=== PATIENT | male | born 1945 | race Caucasian/White ===

== ENCOUNTER 2017-03-26 16:32 | Emergency (ER) | payer BC, OTHER ==
[~2017-03-26] VITALS: Ht 182.9 cm; Wt 70.0 kg
[~2017-03-26 16:32] MED LIST: ASPI325T PO; ATOR10 PO; CITA10SO PO; CITA20TA4 PO; ENAL5TAB98 PO; FLON0.053; ZYRT10TA12 PO
[2017-03-26 16:35] VITALS: BP 162/94; PULSE 60; RESP 14; TEMP 98.1; O2SAT 98
[2017-03-26] MEDS ORDERED: SODIUM CHLOR 0.9% 1000 ML INJ 1,000 ML IV ONE (16:48)
[2017-03-26] MEDS ORDERED: ROPI0.25 PO (16:52)
[2017-03-26] MEDS ORDERED: ATOR40TA16 PO (16:52)
[2017-03-26] MEDS ORDERED: ENAL10TA PO (16:52)
[2017-03-26] MEDS ORDERED: ASPI-110 PO (16:52)
[2017-03-26] MEDS ORDERED: DONE5TAB7 PO (16:52)
[2017-03-26] MEDS ORDERED: MIRTA15 PO (16:52)
[2017-03-26] MEDS ORDERED: SODIUM CHLORIDE 0.9% FLUSH 10 ML FLUSH IVF PRN (17:00)
[2017-03-26] MEDS ORDERED: MORPHINE SULFATE 4 MG/ML INJ IV ONE (17:00)
[2017-03-26] MEDS ORDERED: ONDANSETRON HCL 4 MG/2 ML VIAL IVP ONE (17:00)
--- NOTE | 2017-03-26 17:02 | PD ---
HPI Chief Complaint: Abdominal Pain Time Seen by Provider: 16:48 Travel History International Travel<30 days: No Contact w/Intl Traveler<30days: No Traveled to known affect area: No History of Present Illness HPI C/O 4/10 PAIN ON RLQ ONGOING FOR ALMOST A WEEK, ALWAYS PRESENT BUT CHANGES IN INTENSITY, STATES HE HAD ONE EPISODE OF DARK URINE, DENIES CONSTIPATION/ DIARRHEA....NON RADIATING PAIN, NO ALLEVIATING /OR WORSENING FACTORS. DESCRIBED SHARP PFSH Past Medical History Atrial Fibrillation: Yes Cardiac Catheterization: Yes (2004 post mi) Cardiovascular Problems: Yes (CABG) High Cholesterol: Yes Cerebrovascular Accident: Yes Coronary Artery Disease: Yes Diabetes: Yes (Type 2) Patient Takes Glucophage: No Diminished Hearing: No Genitourinary: Yes (prostatitis) Hypertension: Yes Inguinal Hernia: Yes (surgical repair) Immunizations Current: No Past Surgical History Appendectomy: Yes (with choley) Body Medical Devices: cardiac stents 2007 Cholecystectomy: Yes () Coronary Artery Bypass Graft: Yes (09/2008) Coronary Stent: Yes (2004) Social History Alcohol Use: No Tobacco Use: No Substance Use: No Allergies-Medications (Allergen,Severity, Reaction): Coded Allergies: No Known Allergies (Verified , 03/26/17) Reported Meds & Prescriptions Reported Meds & Active Scripts Active Reported Ropinirole 0.25 Mg Tab 0.25 Mg PO DIRECTED Atorvastatin (Atorvastatin Calcium) 40 Mg Tab 40 Mg PO HS Aspirin 81 (Aspirin) 81 Mg Tabdr 81 Mg PO DAILY Mirtazapine 15 Mg Tab 15 Mg PO HS Enalapril (Enalapril Maleate) 10 Mg Tab 10 Mg PO DAILY Donepezil 5 Mg Tab 5 Mg PO HS Review of Systems Except as stated in HPI: all other systems reviewed are Neg Gastrointestinal: Positive: Abdominal Pain Genitourinary: Positive: Decreased Urinary Output Physical Exam Narrative GENERAL: SKIN: Warm and dry. HEAD: Atraumatic. Normocephalic. EYES: Pupils equal and round. No scleral icterus. No injection or drainage. ENT: No nasal bleeding or discharge. Mucous membranes pink and moist. NECK: Trachea midline. No JVD. CARDIOVASCULAR: Regular rate and rhythm. RESPIRATORY: No accessory muscle use. Clear to auscultation. Breath sounds equal bilaterally. GASTROINTESTINAL: Abdomen soft, non-tender, nondistended. Hepatic and splenic margins not palpable. MUSCULOSKELETAL: Extremities without clubbing, cyanosis, or edema. No obvious deformities. NEUROLOGICAL: Awake and alert. No obvious cranial nerve deficits. Motor grossly within normal limits. Five out of 5 muscle strength in the arms and legs. Normal speech. PSYCHIATRIC: Appropriate mood and affect; insight and judgment normal. Data Data Last Documented VS Vital Signs Date Time Temp Pulse Resp B/P Pulse Ox O2 Delivery O2 Flow Rate FiO2 03/26/17 17:04 98.4 72 16 171/87 94 Room Air Orders Urinalysis - C+S If Indicated (03/26/17 16:41) Complete Blood Count With Diff (03/26/17 16:48) Comprehensive Metabolic Panel (03/26/17 16:48) Ct Abd/Pel W/O Iv Contrast (03/26/17 16:48) Ecg Monitoring (03/26/17 16:48) Iv Access Insert/Monitor (03/26/17 16:48) Morphine Inj (Morphine Inj) (03/26/17 17:00) Ondansetron Inj (Zofran Inj) (03/26/17 17:00) Sodium Chloride 0.9% Flush (Ns Flush) (03/26/17 17:00) Sodium Chlor 0.9% 1000 Ml Inj (Ns 1000 M (03/26/17 16:48) Lipase (03/26/17 16:48) Sodium Chlorid 0.9% 500 Ml Inj (Ns 500 M (03/26/17 18:15) Ketorolac Inj (Toradol Inj) (03/26/17 18:15) Labs Laboratory Tests Test 03/26/17 16:55 White Blood Count 6.7 TH/MM3 Red Blood Count 4.80 MIL/MM3 Hemoglobin 14.0 GM/DL Hematocrit 42.0 % Mean Corpuscular Volume 87.7 FL Mean Corpuscular Hemoglobin 29.2 PG Mean Corpuscular Hemoglobin 33.3 % Concent Red Cell Distribution Width 13.7 % Platelet Count 243 TH/MM3 Mean Platelet Volume 7.1 FL Neutrophils (%) (Auto) 75.1 % Lymphocytes (%) (Auto) 13.4 % Monocytes (%) (Auto) 9.4 % Eosinophils (%) (Auto) 1.4 % Basophils (%) (Auto) 0.7 % Neutrophils # (Auto) 5.1 TH/MM3 Lymphocytes # (Auto) 0.9 TH/MM3 Monocytes # (Auto) 0.6 TH/MM3 Eosinophils # (Auto) 0.1 TH/MM3 Basophils # (Auto) 0.0 TH/MM3 CBC Comment DIFF FINAL Differential Comment Sodium Level 144 MEQ/L Potassium Level 4.2 MEQ/L Chloride Level 108 MEQ/L Carbon Dioxide Level 28.5 MEQ/L Anion Gap 8 MEQ/L Blood Urea Nitrogen 22 MG/DL Creatinine 1.00 MG/DL Estimat Glomerular Filtration 73 ML/MIN Rate Random Glucose 105 MG/DL Calcium Level 10.1 MG/DL Total Bilirubin 1.0 MG/DL Aspartate Amino Transf 20 U/L (AST/SGOT) Alanine Aminotransferase 26 U/L (ALT/SGPT) Alkaline Phosphatase 75 U/L Total Protein 7.7 GM/DL Albumin 4.1 GM/DL Lipase 166 U/L [facility] Medical Decision Making Medical Screen Exam Complete: Yes Emergency Medical Condition: Yes Medical Record Reviewed: Yes Differential Diagnosis PYELO V URETEROLITHIASIS V DEHYDRATION V APPY V COLITIS Narrative Course PATIENT IS DOING WELL, NOT SYMPTOMATIC...CBC AND CMP WERE WNL, CT NEG FOR APPY/ COLITIS BUT POSITIVE FOR KIDNEY STONE 5MM MID URETER ON RIGHT SIDE Diagnosis Primary Impression: RIGHT URETEROLITHIASIS Patient Instructions: General Instructions, Kidney Stones (ED) Scripts Hydrocodone-Acetaminophen (Lortab)5-325 Mg Tab1 Tab PO Q4H PRN (PAIN) #20 TAB Ref 0 Prov:Sunny Hernandez MD 03/26/17 Tamsulosin (Flomax)0.4 Mg Cap0.4 Mg PO HS #7 CAP Prov:Sunny Hernandez MD 03/26/17 Disposition: 01 DISCHARGE HOME Condition: Stable Sunny Hernandez MD Mar 26, 2017 17:02
[2017-03-26 17:04] VITALS: BP 171/87; PULSE 72; RESP 16; TEMP 98.4; O2SAT 94
[2017-03-26 17:06] LABS: AUTOMATED NEUTROPHIL # 5.1 TH/MM3 (1.8-7.7); BASOPHIL % 0.7 % (0.0-2.0); EOSINOPHIL # 0.1 TH/MM3 (0-0.4); EOSINOPHIL % 1.4 % (0.0-4.0); HEMO FLAGS DIFF FINAL; LYMPH % 13.4 % (9.0-44.0); LYMPHOCYTE # 0.9 TH/MM3 (1.0-4.8); MEAN CELL VOLUME 87.7 FL (80.0-100.0); MEAN CORPUSCULAR HEMOGLOBIN 29.2 PG (27.0-34.0); MEAN CORPUSCULAR HGB CONC 33.3 % (32.0-36.0); MONO % 9.4 % (0.0-8.0); NEUT % 75.1 % (16.0-70.0); PLATELET COUNT 243 TH/MM3 (150-450); RED CELL DISTRIBUTION WIDTH 13.7 % (11.6-17.2); WHITE BLOOD COUNT 6.7 TH/MM3 (4.0-11.0)
[2017-03-26 17:14] LABS: CHLORIDE 108 MEQ/L (98-107); POTASSIUM 4.2 MEQ/L (3.5-5.1); SODIUM (NA) 144 MEQ/L (136-145)
[2017-03-26 17:18] LABS: ANION GAP 8 MEQ/L (5-15); BICARBONATE 28.5 MEQ/L (21.0-32.0); BLOOD UREA NITROGEN 22 MG/DL (7-18)
[2017-03-26 17:21] LABS: ALT (GPT) 26 U/L (12-78); AST (GOT) 20 U/L (15-37); GLOMERULAR FILTRATION RATE 73 ML/MIN (>89)
[2017-03-26 17:24] LABS: ALKALINE PHOSPHATASE 75 U/L (45-117)
--- NOTE | 2017-03-26 17:39 | RADRPT ---
EXAM DATE/TIME: 03/26/2017 17:07 [facility] COMPARISON: No previous studies available for comparison. INDICATIONS : Right flank pain. ORAL CONTRAST: No oral contrast ingested. RADIATION DOSE: 9.10 CTDIvol (mGy) MEDICAL HISTORY : Cardiovascular disease. SURGICAL HISTORY : CABG Appendectomy.Cholecystectomy. ENCOUNTER: Initial ACUITY: 1 day PAIN SCALE: 9/10 LOCATION: Right flank TECHNIQUE: Volumetric scanning of the abdomen and pelvis was performed. Using automated exposure control and ad justment of the mA and/or kV according to patient size, radiation dose was kept as low as reasonably achievable to obtain optimal diagnostic quality images. DICOM format image data is available electro nically for review and comparison. FINDINGS: There is acute obstructive uropathy of the right mid ureter secondary to a 5 mm calcified calculus at the level of the L4-L5 disc space resulting in moderate uretero pelvocaliectasis on the right. The prostate gland is prominent in size. Uncomplicated colonic diverticulosis is noted. There is no acu te diverticulitis. The patient is status post cholecystectomy. Degenerative changes are noted throu ghout the lumbar spine. A small left inguinal hernia containing only fat is noted. Fibrotic scarrin g is noted within the posterior lung bases. CONCLUSION: 1. Acute obstructive uropathy of the right mid ureter at the L4-L5 level secondary to a 5 mm calculu s resulting in moderate uretero pelvocaliectasis. 2. Uncomplicated colonic diverticulosis. 3. Enlarged prostate. 4. Small left inguinal hernia containing only fat. 5. Degenerative changes involving the lumbar spine. Hi Del Valle MD on March 26, 2017 at 17:27 Board Certified Radiologist. This report was verified electronically.
[2017-03-26] MEDS ORDERED: KETOROLAC TROMETHAMINE 30 MG/ML (IVP) VIAL IV PUSH ONE (18:15)
[2017-03-26] MEDS ORDERED: SODIUM CHLORID 0.9% 500 ML INJ 500 ML IV ONE (18:15)
[2017-03-26] MEDS ORDERED: TAMS5CAP PO (18:22)
[2017-03-26] MEDS ORDERED: HYDR-3533 PO (18:22)
[2017-03-26 18:23] LABS: BLOOD, URINE LARGE (NEG); GLUCOSE,URINE NEG (NEG); KETONE, URINE TRACE mg/dL (NEG); NITRITE,URINE NEG (NEG); PH, URINE 5.5 (5.0-8.5)
[2017-03-26 18:26] LABS: METHOD OF COLLECTION CLEAN CATCH; URINE COLOR BROWN (YELLW/STRAW)
[2017-03-26 18:27] LABS: COMMENT (UR) CULT NOT INDICATED; CULTURE IF INDICATED CULT NOT INDICATED; RBC, URINE INNUM /hpf (0-3)
[2017-03-26 19:29] VITALS: BP 168/78; PULSE 72; RESP 18; O2SAT 96
== END 2017-03-26 19:32 | disposition home or self-care (01) ==
LOC: PHED 16:32
DX: N20.1 Calculus of ureter (principal); I25.2 Old myocardial infarction; E11.9 Type 2 diabetes mellitus without complications; I25.10 Atherosclerotic heart disease of native coronary artery without angina pectoris; I10 Essential (primary) hypertension; Z86.73 Personal history of transient ischemic attack (TIA), and cerebral infarction without residual deficits; Z95.1 Presence of aortocoronary bypass graft; I48.91 Unspecified atrial fibrillation; E78.00 Pure hypercholesterolemia, unspecified
CPT/HCPCS: 74176; 80053; 81001; 83690; 85025; 96361; 96374; 96375; 99285; J1885; J2270; J2405; J7030; J7040

== ENCOUNTER 2017-07-18 16:56 | Inpatient (IN) | payer OTHER, MEDICARE ==
[~2017-07-18] VITALS: Ht 177.8 cm; Wt 68.9 kg
[2017-07-18] VITALS (10 sets, daily range): BP systolic 74–107; BP diastolic 42–61; PULSE 56–73; RESP 16–18; TEMP 97.4–97.5; O2SAT 90–98
[~2017-07-18 16:56] MED LIST changes: +ASPI-110 PO; -ASPI325T PO; -ATOR10 PO; +ATOR40TA16 PO; -CITA10SO PO; -CITA20TA4 PO; +DONE5TAB7 PO; +ENAL10TA PO; -ENAL5TAB98 PO; -FLON0.053; +HYDR-3533 PO; +MIRTA15 PO; +ROPI0.25 PO; +TAMS5CAP PO; -ZYRT10TA12 PO
[2017-07-18] MEDS ORDERED: SODIUM CHLOR 0.9% 1000 ML INJ 1,000 ML IV SCH (17:19)
[2017-07-18] MEDS ORDERED: SODIUM CHLORIDE 0.9% FLUSH 10 ML FLUSH IV FLUSH PRN ×2 (17:30→22:15)
[2017-07-18] MEDS ORDERED: DONE5TAB7 PO (17:36)
[2017-07-18] MEDS ORDERED: SINE10100 PO (17:36)
[2017-07-18 17:40] LABS: BASOPHIL # 0.1 TH/MM3 (0-0.2); BASOPHIL % 0.4 % (0.0-2.0); EOSINOPHIL % 0.1 % (0.0-4.0); HEMATOCRIT 37.4 % (39.0-51.0); LYMPH % 3.2 % (9.0-44.0); LYMPHOCYTE # 0.6 TH/MM3 (1.0-4.8); MEAN CELL VOLUME 85.9 FL (80.0-100.0); MEAN CORPUSCULAR HEMOGLOBIN 29.2 PG (27.0-34.0); MONO % 7.3 % (0.0-8.0); PLATELET COUNT 222 TH/MM3 (150-450); RED BLOOD COUNT 4.36 MIL/MM3 (4.50-5.90); RED CELL DISTRIBUTION WIDTH 13.3 % (11.6-17.2); WHITE BLOOD COUNT 19.1 TH/MM3 (4.0-11.0)
--- NOTE | 2017-07-18 17:45 | PD ---
HPI Chief Complaint: Altered Mental Status Time Seen by Provider: 17:19 Travel History International Travel<30 days: No Contact w/Intl Traveler<30days: No Traveled to known affect area: No History of Present Illness HPI Patient is a 71-year-old male who presents to emergency room with his for evaluation of altered mental status. Patient is , he has not been feeling well since yesterday. Reports that he has history of dementia and Parkinson's disease, more confused since yesterday. Reports that he has had decreased by mouth intake, reports that he had an episode of nausea and vomiting today. Reports that she noticed blood in his urine - patient was complaining of left- sided flank pain. Reports history of kidney stones in the past. Patient at this time denies any chest pain or shortness of breath, patient is alert to person and place, not time. Patient unable to provide history of present illness this time. PFSH Past Medical History Atrial Fibrillation: Yes Cardiac Catheterization: Yes (2004 post mi) Cardiovascular Problems: Yes (CABG) High Cholesterol: Yes Cerebrovascular Accident: Yes Coronary Artery Disease: Yes Diabetes: Yes (Type 2) Patient Takes Glucophage: No Diminished Hearing: No Genitourinary: Yes (prostatitis) Hypertension: Yes Inguinal Hernia: Yes (surgical repair) Kidney Stones: Yes Parkinson's Disease: Yes Immunizations Current: No Influenza Vaccination: Yes ?: Not Past Surgical History Appendectomy: Yes (with choley) Body Medical Devices: cardiac stents 2007 Cholecystectomy: Yes () Coronary Artery Bypass Graft: Yes (09/2008) Coronary Stent: Yes (2004) Genitourinary Surgery: Yes (KIDNEY STONE REMOVAL) Social History Alcohol Use: No Tobacco Use: No Substance Use: No Allergies-Medications (Allergen,Severity, Reaction): Coded Allergies: propofol (Verified Allergy, Severe, Hallucinations, 07/18/17) Reported Meds & Prescriptions Reported Meds & Active Scripts Active Flomax (Tamsulosin HCl) 0.4 Mg Cap 0.4 Mg PO HS Reported Sinemet (Carbidopa/Levodopa) 10-100 Mg Tab 1 Tab PO Q8HR Donepezil 5 Mg Tab 5 Mg PO DAILY Ropinirole 0.25 Mg Tab 0.25 Mg PO DIRECTED Atorvastatin (Atorvastatin Calcium) 40 Mg Tab 40 Mg PO HS Aspirin 81 (Aspirin) 81 Mg Tabdr 81 Mg PO DAILY Mirtazapine 15 Mg Tab 15 Mg PO HS Enalapril (Enalapril Maleate) 10 Mg Tab 10 Mg PO DAILY Review of Systems ROS Limitations: Altered Mental Status General / Constitutional: No: Fever Eyes: No: Visual changes HENT: No: Headaches Cardiovascular: No: Chest Pain or Discomfort Respiratory: No: Shortness of Breath Gastrointestinal: Positive: Nausea, Vomiting, No: Abdominal Pain Genitourinary: Positive: Hematuria, Flank Pain, No: Dysuria Musculoskeletal: No: Pain Skin: No Rash Neurologic: No: Weakness Psychiatric: No: Depression Endocrine: No: Polydipsia Hematologic/Lymphatic: No: Easy Bruising Physical Exam Narrative GENERAL: moderate distress SKIN: Focused skin assessment warm/dry. HEAD: Atraumatic. Normocephalic. EYES: Pupils equal and round. No scleral icterus. No injection or drainage. ENT: No nasal bleeding or discharge. Mucous membranes pink and tachy. NECK: Trachea midline. No JVD. CARDIOVASCULAR: Regular rate and rhythm. No murmur appreciated. RESPIRATORY: No accessory muscle use. Clear to auscultation. Breath sounds equal bilaterally. GASTROINTESTINAL: Abdomen soft, non-tender, nondistended. Hepatic and splenic margins not palpable. MUSCULOSKELETAL: No obvious deformities. No clubbing. No cyanosis. No edema. NEUROLOGICAL: Awake and alert to person and place. No obvious cranial nerve deficits. Motor grossly within normal limits. Normal speech. Data Data Last Documented VS Vital Signs Date Time Temp Pulse Resp B/P (MAP) Pulse Ox O2 Delivery O2 Flow Rate FiO2 07/18/17 18:21 66 18 89/51 (64) 97 Room Air 07/18/17 17:04 97.4 Orders Orders Complete Blood Count With Diff (07/18/17 17:19) Comprehensive Metabolic Panel (07/18/17 17:19) Lipase (07/18/17 17:19) Lactic Acid (07/18/17 17:19) Prothrombin Time / Inr (Pt) (07/18/17 17:19) Act Partial Throm Time (Ptt) (07/18/17 17:19) Urinalysis - C+S If Indicated (07/18/17 17:19) Ct Abd/Pel W/O Iv Contrast (07/18/17 17:19) Iv Access Insert/Monitor (07/18/17 17:19) Ecg Monitoring (07/18/17 17:19) Oximetry (07/18/17 17:19) Sodium Chlor 0.9% 1000 Ml Inj (Ns 1000 M (07/18/17 17:19) Sodium Chloride 0.9% Flush (Ns Flush) (07/18/17 17:30) Electrocardiogram (07/18/17 17:19) Chest, Single Ap (07/18/17 17:19) Cath For Specimen (07/18/17 17:19) Lactic Acid Sepsis Protocol (07/18/17 17:19) Type And Screen (07/18/17 17:19) Ct Brain W/O Iv Contrast(Rout) (07/18/17 17:41) Blood Culture (07/18/17 17:51) Piperacil-Tazo 3.375 Gm Premix (Zosyn 3. (07/18/17 18:15) Vancomycin Inj (Vancomycin Inj) (07/18/17 18:30) Ckmb (Isoenzyme) Profile (07/18/17 18:31) Troponin I (07/18/17 18:31) Sodium Chlor 0.9% 1000 Ml Inj (Ns 1000 M (07/18/17 18:45) Labs Laboratory Tests Test 07/18/17 17:30 White Blood Count 19.1 TH/MM3 Red Blood Count 4.36 MIL/MM3 Hemoglobin 12.7 GM/DL Hematocrit 37.4 % Mean Corpuscular Volume 85.9 FL Mean Corpuscular Hemoglobin 29.2 PG Mean Corpuscular Hemoglobin Concent 34.0 % Red Cell Distribution Width 13.3 % Platelet Count 222 TH/MM3 Mean Platelet Volume 6.9 FL Neutrophils (%) (Auto) 89.0 % Lymphocytes (%) (Auto) 3.2 % Monocytes (%) (Auto) 7.3 % Eosinophils (%) (Auto) 0.1 % Basophils (%) (Auto) 0.4 % Neutrophils # (Auto) 17.0 TH/MM3 Lymphocytes # (Auto) 0.6 TH/MM3 Monocytes # (Auto) 1.4 TH/MM3 Eosinophils # (Auto) 0.0 TH/MM3 Basophils # (Auto) 0.1 TH/MM3 CBC Comment AUTO DIFF Prothrombin Time 11.8 SEC Prothromb Time International Ratio 1.1 RATIO Activated Partial Thromboplast Time 33.3 SEC Blood Urea Nitrogen 22 MG/DL Creatinine 1.00 MG/DL Random Glucose 153 MG/DL Total Protein 6.9 GM/DL Albumin 3.2 GM/DL Calcium Level 9.6 MG/DL Alkaline Phosphatase 306 U/L Aspartate Amino Transf (AST/SGOT) 15 U/L Alanine Aminotransferase (ALT/SGPT) 8 U/L Total Bilirubin 1.4 MG/DL Sodium Level 134 MEQ/L Potassium Level 4.0 MEQ/L Chloride Level 102 MEQ/L Carbon Dioxide Level 22.4 MEQ/L Anion Gap 10 MEQ/L Estimat Glomerular Filtration Rate 73 ML/MIN Lactic Acid Level 1.0 mmol/L Lipase 88 U/L [facility] Medical Decision Making Medical Screen Exam Complete: Yes Emergency Medical Condition: Yes Medical Record Reviewed: Yes Interpretation(s) ekg at 1713: NSR at 74bpm, qt/qtc: 400/428m rbbb Vital Signs Date Time Temp Pulse Resp B/P (MAP) Pulse Ox O2 Delivery O2 Flow Rate FiO2 07/18/17 17:25 73 18 85/57 (66) 98 Room Air 07/18/17 17:22 73 07/18/17 17:04 97.4 72 18 74/48 (57) 96 Differential Diagnosis Differential includes sepsis, UTI, pyelonephritis, kidney stone, CVA, ACS, arrhythmia, electrolyte abnormality Narrative Course Patient is a 71-year-old male who presents to emergency room with his for evaluation of altered mental status. Patient has had 2 days of flank pain with hematuria and dysuria, patient with history of kidney stones in the past. As per patient's , altered and not acting like his normal self, reports decreased overall oral intake over the past 2 days. Patient was placed on a desk monitor upon arrival to the emergency room. An IV line established, patient was found to be hypotensive with a blood pressure 74/48, IV fluid bolus ordered for patient. Lab work including UA, CT of the head as well as abdomen and pelvis ordered, lactic acid as well as blood cultures ordered as well. Vital Signs Date Time Temp Pulse Resp B/P (MAP) Pulse Ox O2 Delivery O2 Flow Rate FiO2 07/18/17 18:21 66 18 89/51 (64) 97 Room Air 07/18/17 17:25 73 18 85/57 (66) 98 Room Air 07/18/17 17:22 73 07/18/17 17:04 97.4 72 18 74/48 (57) 96 Laboratory Tests Test 07/18/17 17:30 White Blood Count 19.1 TH/MM3 (4.0-11.0) Red Blood Count 4.36 MIL/MM3 (4.50-5.90) Hemoglobin 12.7 GM/DL (13.0-17.0) Hematocrit 37.4 % (39.0-51.0) Mean Corpuscular Volume 85.9 FL (80.0-100.0) Mean Corpuscular Hemoglobin 29.2 PG (27.0-34.0) Mean Corpuscular Hemoglobin Concent 34.0 % (32.0-36.0) Red Cell Distribution Width 13.3 % (11.6-17.2) Platelet Count 222 TH/MM3 (150-450) Mean Platelet Volume 6.9 FL (7.0-11.0) Neutrophils (%) (Auto) 89.0 % (16.0-70.0) Lymphocytes (%) (Auto) 3.2 % (9.0-44.0) Monocytes (%) (Auto) 7.3 % (0.0-8.0) Eosinophils (%) (Auto) 0.1 % (0.0-4.0) Basophils (%) (Auto) 0.4 % (0.0-2.0) Neutrophils # (Auto) 17.0 TH/MM3 (1.8-7.7) Lymphocytes # (Auto) 0.6 TH/MM3 (1.0-4.8) Monocytes # (Auto) 1.4 TH/MM3 (0-0.9) Eosinophils # (Auto) 0.0 TH/MM3 (0-0.4) Basophils # (Auto) 0.1 TH/MM3 (0-0.2) CBC Comment AUTO DIFF Prothrombin Time 11.8 SEC (9.8-11.6) Prothromb Time International Ratio 1.1 RATIO Activated Partial Thromboplast Time 33.3 SEC (24.3-30.1) Blood Urea Nitrogen 22 MG/DL (7-18) Creatinine 1.00 MG/DL (0.60-1.30) Random Glucose 153 MG/DL (74-106) Total Protein 6.9 GM/DL (6.4-8.2) Albumin 3.2 GM/DL (3.4-5.0) Calcium Level 9.6 MG/DL (8.5-10.1) Alkaline Phosphatase 306 U/L (45-117) Aspartate Amino Transf (AST/SGOT) 15 U/L (15-37) Alanine Aminotransferase (ALT/SGPT) 8 U/L (12-78) Total Bilirubin 1.4 MG/DL (0.2-1.0) Sodium Level 134 MEQ/L (136-145) Potassium Level 4.0 MEQ/L (3.5-5.1) Chloride Level 102 MEQ/L (98-107) Carbon Dioxide Level 22.4 MEQ/L (21.0-32.0) Anion Gap 10 MEQ/L (5-15) Estimat Glomerular Filtration Rate 73 ML/MIN (>89) Lactic Acid Level 1.0 mmol/L (0.4-2.0) Lipase 88 U/L (73-393) Last Impressions Head CT 07/18/17 174 Signed Impressions: Service Date/Time: Tuesday, July 18, 2017 17:54 - CONCLUSION: Normal examination. Walt Leonard MD Chest X-Ray [id number] Signed Impressions: Service Date/Time: Tuesday, July 18, 2017 17:48 - CONCLUSION: No acute cardiopulmonary abnormality is identified. Ovidio Barba MD Abdomen/Pelvis CT [id number] Signed Impressions: Service Date/Time: Tuesday, July 18, 2017 18:00 - CONCLUSION: 3.5 cm low density lesion lower pole of the right kidney felt to represent a cyst versus solid mass . No evidence of renal or ureteral calculi or obstructive uropathy. Walt Leonard MD Patient returns to ER, continues to by hypotensive, patient has not received IVF yet as he was at CT. Patient with wbc of 19.1, lactic acid of 1.0, he has been pancultured. vanco and zosyn ordered. Patient will be admitted to the ICU once labs have resulted Patient signed out to care of Dr. Valenzuela at change of shift Critical Care Narrative Aggregate critical care time was 30 minutes. Time to perform other separately billable procedures was not included in the critical care time. My time did not include minutes spent treating any other patients simultaneously or on activities that did not directly contribute to the patient's treatment. The services I provided to this patient were to treat and/or prevent clinically significant deterioration that could result in: , decompensation, deterioration I provided critical care services requiring my management, as noted below: Chart data review, documentation time, medication orders and management, vital sign assessments/reviewing monitor data, ordering and reviewing lab tests, ordering and interpreting/reviewing x-rays and diagnostic studies, care of the patient and discussion of the patient with the admitting physicians. Diagnosis Primary Impression: Sepsis Qualified Codes: A41.9 - Sepsis, unspecified organism Admitting Information Admitting Physician Requests: Admit Radha Blevins DO Jul 18, 2017 17:45
[2017-07-18 17:48] LABS: HEMO FLAGS AUTO DIFF
[2017-07-18 17:50] LABS: CHLORIDE 102 MEQ/L (98-107); SODIUM (NA) 134 MEQ/L (136-145)
[2017-07-18 17:54] LABS: ANION GAP 10 MEQ/L (5-15); BICARBONATE 22.4 MEQ/L (21.0-32.0); BLOOD UREA NITROGEN 22 MG/DL (7-18)
[2017-07-18 17:55] LABS: APTT (PATIENT) 33.3 SEC (24.3-30.1); INTERNATIONAL NORMALIZED RATIO 1.1 RATIO; PROTHROMBIN TIME - PATIENT 11.8 SEC (9.8-11.6)
[2017-07-18 17:57] LABS: ALT (GPT) 8 U/L (12-78); AST (GOT) 15 U/L (15-37); GLOMERULAR FILTRATION RATE 73 ML/MIN (>89)
--- NOTE | 2017-07-18 17:57 | RADRPT ---
EXAM DATE/TIME: 07/18/2017 17:48 [facility] COMPARISON: No previous studies available for comparison. INDICATIONS : Short of breath. MEDICAL HISTORY : Cardiovascular disease. SURGICAL HISTORY : CABG. ENCOUNTER: Initial ACUITY: 1 day PAIN SCORE: 0/10 LOCATION: Bilateral chest FINDINGS: Portable AP view of the chest demonstrates a normal-sized cardiac silhouette. No effusion, consolidat ion, or pneumothorax is visualized. The bones and soft tissues demonstrate no acute abnormality. Kirsten ent is post median sternotomy and valve replacement. CONCLUSION: No acute cardiopulmonary abnormality is identified. Ovidio Barba MD on July 18, 2017 at 17:55 Board Certified Radiologist. This report was verified electronically.
[2017-07-18 17:58] LABS: TOTAL BILIRUBIN ADULT 1.4 MG/DL (0.2-1.0)
[2017-07-18 18:00] LABS: ALKALINE PHOSPHATASE 306 U/L (45-117)
--- NOTE | 2017-07-18 18:12 | RADRPT ---
EXAM DATE/TIME: 07/18/2017 17:54 [facility] COMPARISON: No previous studies available for comparison. INDICATIONS : Headache. RADIATION DOSE: 58.14 CTDIvol (mGy) MEDICAL HISTORY : Cerebrovascular disease. Cardiovascular disease Hypertension.Diabetes. SURGICAL HISTORY : CABG Coronary artery stent.Appendectomy.Cholecystectomy. ENCOUNTER: Initial ACUITY: 2 days PAIN SCALE: 5/10 LOCATION: cranial TECHNIQUE: Multiple contiguous axial images were obtained of the head. Using automated exposure control and adj ustment of the mA and/or kV according to patient size, radiation dose was kept as low as reasonably a chievable to obtain optimal diagnostic quality images. DICOM format image data is available electro nically for review and comparison. FINDINGS: CEREBRUM: The ventricles are normal for age. No evidence of midline shift, mass lesion, hemorrhage or acute in farction. No extra-axial fluid collections are seen. POSTERIOR FOSSA: The cerebellum and brainstem are intact. The 4th ventricle is midline. The cerebellopontine angle i s unremarkable. EXTRACRANIAL: The visualized portion of the orbits is intact. SKULL: The calvaria is intact. No evidence of skull fracture. CONCLUSION: Normal examination. Walt Leonard MD on July 18, 2017 at 18:10 Board Certified Radiologist. This report was verified electronically.
[2017-07-18] MEDS ORDERED: PIPERACIL-TAZO 3.375 GM PREMIX 50 ML IV ONE (18:15)
[2017-07-18] MEDS ORDERED: VANCOMYCIN INJ 1,000 MG in SODIUM CHLOR 0.9% 250 ML INJ 250 ML IV ONE ×2 (18:15→18:30)
--- NOTE | 2017-07-18 18:19 | RADRPT ---
EXAM DATE/TIME: 07/18/2017 18:00 [facility] COMPARISON: No previous studies available for comparison. INDICATIONS : Increased urinary frequency with blood. Left flank pain. ORAL CONTRAST: No oral contrast ingested. RADIATION DOSE: 5.16 CTDIvol (mGy) MEDICAL HISTORY : Cerebrovascular disease. Cardiovascular disease Hypertension.Diabetes. SURGICAL HISTORY : CABG Coronary artery stent.Appendectomy.Cholecystectomy. ENCOUNTER: Initial ACUITY: 2 days PAIN SCALE: 5/10 LOCATION: Left flank TECHNIQUE: Volumetric scanning of the abdomen and pelvis was performed. Using automated exposure control and adjustment of the mA and/or kV according to patient size, radiation dose was kept as low as reasonably achievable to obtain optimal diagnostic quality images. DICOM format image data is av ailable electronically for review and comparison. FINDINGS: LOWER LUNGS: The visualized lower lungs are clear. LIVER: Homogeneous density without lesion. There is no dilation of the biliary tree is in place prior cholecystectomy SPLEEN: Normal size without lesion. PANCREAS: Within normal limits. KIDNEYS: Normal in size and shape. There is no stone, or hydronephrosis. There is a 3.5 cm hypod ensity of the inferior pole of the right kidney which could conceivably represent a cyst. ADRENAL GLANDS: Within normal limits. VASCULAR: There is no aortic aneurysm. BOWEL/MESENTERY: The stomach, small bowel, and colon demonstrate no acute abnormality. There is no free intraperitoneal air or fluid. ABDOMINAL WALL: Within normal limits. RETROPERITONEUM: There is no lymphadenopathy. BLADDER: No wall thickening or mass. REPRODUCTIVE: Within normal limits. INGUINAL: There is no lymphadenopathy or hernia. MUSCULOSKELETAL: Within normal limits for patient age. CONCLUSION: 3.5 cm low density lesion lower pole of the right kidney felt to represent a cyst paramjit mer solid mass . No evidence of renal or ureteral calculi or obstructive uropathy. Walt Leonard MD on July 18, 2017 at 18:14 Board Certified Radiologist. This report was verified electronically.
[2017-07-18] MEDS ORDERED: SODIUM CHLOR 0.9% 1000 ML INJ 1,000 ML IV ONE ×2 (18:45→22:08)
[2017-07-18 18:56] LABS: SCAN/DIFF AUTO DIFF CONFIRMED
[2017-07-18 19:05] LABS: CREATINE KINASE 52 U/L (39-308)
[2017-07-18 19:07] LABS: BLOOD, URINE LARGE (NEG); GLUCOSE,URINE NEG (NEG); KETONE, URINE TRACE mg/dL (NEG); NITRITE,URINE POS (NEG)
[2017-07-18 19:19] LABS: URINE COLOR YELLOW (YELLW/STRAW)
[2017-07-18 19:20] LABS: BACTERIA, URINE MANY /hpf; COMMENT (UR) CULTURE INDICATED; CULTURE IF INDICATED CULTURE INDICATED; SQUAMOUS EPITHELIAL CELL URINE 0-5 /hpf (0-5)
--- NOTE | 2017-07-18 19:37 | PD ---
Physical Exam Time Seen by Provider: 19:[address] Blevins left this patient with me to check the urine results and call the pencils washer. Data Data Last Documented VS Vital Signs Date Time Temp Pulse Resp B/P (MAP) Pulse Ox O2 Delivery O2 Flow Rate FiO2 07/18/17 19:00 64 16 98 Room Air 07/18/17 18:21 89/51 (64) 07/18/17 17:04 97.4 Orders Orders Complete Blood Count With Diff (07/18/17 17:19) Comprehensive Metabolic Panel (07/18/17 17:19) Lipase (07/18/17 17:19) Lactic Acid (07/18/17 17:19) Prothrombin Time / Inr (Pt) (07/18/17:19) Act Partial Throm Time (Ptt) (07/18/17:19) Urinalysis - C+S If Indicated (07/18/17 17:19) Ct Abd/Pel W/O Iv Contrast (07/18/17 17:19) Iv Access Insert/Monitor (07/18/17 17:19) Ecg Monitoring (07/18/17 17:19) Oximetry (07/18/17 17:19) Sodium Chlor 0.9% 1000 Ml Inj (Ns 1000 M (07/18/17 17:19) Sodium Chloride 0.9% Flush (Ns Flush) (07/18/17 17:30) Electrocardiogram (07/18/17 17:19) Chest, Single Ap (07/18/17 17:19) Cath For Specimen (07/18/17 17:19) Lactic Acid Sepsis Protocol (07/18/17 17:19) Type And Screen (07/18/17 17:19) Ct Brain W/O Iv Contrast(Rout) (07/18/17 17:41) Blood Culture (07/18/17 17:51) Piperacil-Tazo 3.375 Gm Premix (Zosyn 3. (07/18/17 18:15) Vancomycin Inj (Vancomycin Inj) (07/18/17 18:30) Sodium Chlor 0.9% 1000 Ml Inj (Ns 1000 M (07/18/17 18:45) Ckmb (Isoenzyme) Profile (07/18/17 17:30) Troponin I (07/18/17 17:30) Urine Culture (07/18/17 19:00) Labs Laboratory Tests Test 07/18/17 17:30 07/18/17 19:00 07/18/17 19:28 White Blood Count 19.1 TH/MM3 Red Blood Count 4.36 MIL/MM3 Hemoglobin 12.7 GM/DL Hematocrit 37.4 % Mean Corpuscular Volume 85.9 FL Mean Corpuscular Hemoglobin 29.2 PG Mean Corpuscular Hemoglobin Concent 34.0 % Red Cell Distribution Width 13.3 % Platelet Count 222 TH/MM3 Mean Platelet Volume 6.9 FL Neutrophils (%) (Auto) 89.0 % Lymphocytes (%) (Auto) 3.2 % Monocytes (%) (Auto) 7.3 % Eosinophils (%) (Auto) 0.1 % Basophils (%) (Auto) 0.4 % Neutrophils # (Auto) 17.0 TH/MM3 Lymphocytes # (Auto) 0.6 TH/MM3 Monocytes # (Auto) 1.4 TH/MM3 Eosinophils # (Auto) 0.0 TH/MM3 Basophils # (Auto) 0.1 TH/MM3 CBC Comment AUTO DIFF Differential Comment AUTO DIFF CONFIRMED Prothrombin Time 11.8 SEC Prothromb Time International Ratio 1.1 RATIO Activated Partial Thromboplast Time 33.3 SEC Blood Urea Nitrogen 22 MG/DL Creatinine 1.00 MG/DL Random Glucose 153 MG/DL Total Protein 6.9 GM/DL Albumin 3.2 GM/DL Calcium Level 9.6 MG/DL Alkaline Phosphatase 306 U/L Aspartate Amino Transf (AST/SGOT) 15 U/L Alanine Aminotransferase (ALT/SGPT) 8 U/L Total Bilirubin 1.4 MG/DL Sodium Level 134 MEQ/L Potassium Level 4.0 MEQ/L Chloride Level 102 MEQ/L Carbon Dioxide Level 22.4 MEQ/L Anion Gap 10 MEQ/L Estimat Glomerular Filtration Rate 73 ML/MIN Lactic Acid Level 1.0 mmol/L 1.1 mmol/L Total Creatine Kinase 52 U/L Troponin I 0.02 NG/ML Lipase 88 U/L Urine Color YELLOW Urine Turbidity CLOUDY Urine pH 6.0 Urine Specific [place] 1.015 Urine Protein 100 mg/dL Urine Glucose (UA) NEG mg/dL Urine Ketones TRACE mg/dL Urine Occult Blood LARGE Urine Nitrite POS Urine Bilirubin NEG Urine Leukocyte Esterase MOD Urine RBC 25-49 /hpf Urine WBC 25-49 /hpf Urine WBC Clumps FEW Urine Squamous Epithelial Cells 0-5 /hpf Urine Amorphous Sediment FEW Urine Bacteria MANY /hpf Microscopic Urinalysis Comment CULTURE INDICATED MDM Medical Record Reviewed: Yes Supervised Visit with MICHAEL: Yes Interpretation(s) The CBC shows a white count of 19,100 with 89% neutrophils. He has a minimal anemia with a hemoglobin of 12.7 and hematocrit of 37.4. The urine shows cloudy turbidity with trace ketones, large blood, positive nitrite and moderate leukocyte esterase with 25-49 white cells and white cell clumping's present and many bacteria and culture is indicated. The complete metabolic profile shows a sodium 134, BUN 22, glucose 153 with GFR of 73 and total bilirubin 1.4 and alkaline phosphatase of 306 with albumin 3.2 but is otherwise unremarkable. The troponin I is normal. The lipase is normal. The lactic acid is normal at 1.0. The coagulation profile shows a ProTime of 11.8 and a PTT of 33.3 and INR 1.1. Differential Diagnosis Sepsis, urinary tract infection, electrolyte disorder, dehydration, hypotension Narrative Course The patient appears to have sepsis. The source of the infection appears to be the urine. His hypotension is improving with fluids, he was apparently very dehydrated. He had a catheterization for urine and no urine was obtained because the bladder was empty. Currently, he has 107 systolic blood pressure after 1 L of fluid. I discussed the patient with Dr. Alvarez, the patient will be admitted here to the intensive care unit. Sepsis Criteria SIRS Criteria (2 or more): WBC > 33390, < 4000 or > 10% bands Severe Sepsis (+one): Hypotension Physician Communication Physician Communication I discussed the patient with Dr. Alvarez. Diagnosis Primary Impression: Sepsis Qualified Codes: A41.9 - Sepsis, unspecified organism Additional Impression: Moderate dehydration Admitting Information Admitting Physician Requests: Admit Garfield Valenzuela MD Jul 18, 2017 19:37
[2017-07-18] MEDS: SODIUM CHLOR 0.9% 1000 ML INJ 1,000 ML IV ONE (22:08)
[2017-07-18] MEDS ORDERED: Vancomycin Consult Pharmacy 1 EA OTHER SCH (22:15)
[2017-07-18] MEDS ORDERED: CHLORHEXIDINE GLUCONATE 2 % 1 PACK (2 CLOTHS) TOP PRN (22:15)
[2017-07-18] MEDS ORDERED: MISCELLANEOUS NURSING INFORMATION XX SCH (22:15)
[2017-07-18] MEDS ORDERED: RESP: ALBUTEROL 2.5 MG/IPRATROPIUM 0.5 MG NEB (PRN) INH (22:15)
[2017-07-18] MEDS ORDERED: HEPARIN SODIUM - SQ 10,000 UNITS/ML VIAL SQ SCH (22:15)
[2017-07-19] VITALS (29 sets, daily range): BP systolic 84–143; BP diastolic 47–74; PULSE 51–74; RESP 12–31; TEMP 97.6–99.4; O2SAT 92–99
[2017-07-19] MEDS: SODIUM CHLOR 0.9% 1000 ML INJ 1,000 ML IV SCH ×3 (00:16→17:05)
[2017-07-19] MEDS: CHLORHEXIDINE GLUCONATE 2 % 1 PACK (2 CLOTHS) TOP SCH (00:20)
[2017-07-19] MEDS: HEPARIN SODIUM - SQ 10,000 UNITS/ML VIAL SQ SCH ×4 (00:25→23:49)
[2017-07-19] MEDS: SODIUM CHLOR 0.9% 1000 ML INJ 1,000 ML IV ONE (01:04)
[2017-07-19] MEDS: PIPERACIL-TAZO 4.5 GM PREMIX 100 ML IV SCH ×4 (02:38→20:21)
[2017-07-19] MEDS: CARBIDOPA/LEVODOPA 10 MG/100 MG TAB PO SCH ×2 (06:04→13:32)
[2017-07-19 06:21] LABS: AUTOMATED NEUTROPHIL # 11.8 TH/MM3 (1.8-7.7); BASOPHIL % 0.2 % (0.0-2.0); EOSINOPHIL # 0.1 TH/MM3 (0-0.4); EOSINOPHIL % 0.6 % (0.0-4.0); LYMPH % 4.7 % (9.0-44.0); LYMPHOCYTE # 0.6 TH/MM3 (1.0-4.8); MEAN CELL VOLUME 86.7 FL (80.0-100.0); MEAN CORPUSCULAR HGB CONC 32.3 % (32.0-36.0); MONO % 8.5 % (0.0-8.0); PLATELET COUNT 208 TH/MM3 (150-450); RED BLOOD COUNT 3.92 MIL/MM3 (4.50-5.90); RED CELL DISTRIBUTION WIDTH 13.2 % (11.6-17.2); WHITE BLOOD COUNT 13.7 TH/MM3 (4.0-11.0)
[2017-07-19 06:29] LABS: HEMO FLAGS DIFF FINAL
[2017-07-19 06:45] LABS: ALKALINE PHOSPHATASE 61 U/L (45-117); ALT (GPT) 11 U/L (12-78); ANION GAP 8 MEQ/L (5-15); AST (GOT) 11 U/L (15-37); BICARBONATE 23.2 MEQ/L (21.0-32.0); BLOOD UREA NITROGEN 15 MG/DL (7-18); CHLORIDE 110 MEQ/L (98-107); GLOMERULAR FILTRATION RATE 114 ML/MIN (>89); SODIUM (NA) 141 MEQ/L (136-145); TOTAL BILIRUBIN ADULT 1.1 MG/DL (0.2-1.0)
--- NOTE | 2017-07-19 07:00 | HHI.HP ---
[facility] Service Critical Care Medicine Primary Care Physician Malou Melton Do, MD Admission Diagnosis sepsis, moderate dehydration, hypotension Diagnosis: Travel History International Travel<30 Days: No Contact w/Intl Traveler <30 Da: No Traveled to Known Affected Are: No History of Present Illness This is a 71-year-old male who presents to ED accompanied by his for evaluation of altered mental status. The patient's reported, he has not been feeling well since yesterday. The patient's medical history is significant for history of dementia and Parkinson's disease. In the past 24 hours the patient had become more confused, lethargic and somnolent. She reported that he had decreased by mouth intake, reports that he had an episode of nausea and vomiting today. Reports that she noticed blood in his urine - patient was complaining of left-sided flank pain. The patient has a medical history of nephrolithiasis and BPH and home medications include Flomax which the had not been giving him for several days. The patient's urologist is Dr. Marti. Patient at this time denies any chest pain or shortness of breath , patient is alert to person and place, not time. Imaging and laboratory studies were obtained patient was diagnosed with sepsis, critical care medicine was consulted. History PFSH Past Medical History Atrial Fibrillation: Yes Cardiac Catheterization: Yes (2004 post mi) Cardiovascular Problems: Yes (CABG) High Cholesterol: Yes Cerebrovascular Accident: Yes Coronary Artery Disease: Yes Diabetes: Yes (Type 2) Patient Takes Glucophage: No Diminished Hearing: No Genitourinary: Yes (prostatitis) Hypertension: Yes Inguinal Hernia: Yes (surgical repair) Kidney Stones: Yes Parkinson's Disease: Yes Immunizations Current: No Influenza Vaccination: Yes ?: Not Past Surgical History Appendectomy: Yes (with choley) Body Medical Devices: cardiac stents 2007 Cholecystectomy: Yes () Coronary Artery Bypass Graft: Yes (09/2008) Coronary Stent: Yes (2004) Genitourinary Surgery: Yes (KIDNEY STONE REMOVAL) Social History Alcohol Use: No Tobacco Use: No Substance Use: No Allergies-Medications Allergies-Medications (Allergen,Severity, Reaction): Coded Allergies: propofol (Verified Allergy, Severe, Hallucinations, 07/18/17) Reported Meds & Prescriptions Reported Meds & Active Scripts Active Flomax (Tamsulosin HCl) 0.4 Mg Cap 0.4 Mg PO HS Reported Sinemet (Carbidopa/Levodopa) 10-100 Mg Tab 1 Tab PO Q8HR Donepezil 5 Mg Tab 5 Mg PO DAILY Ropinirole 0.25 Mg Tab 0.25 Mg PO DIRECTED Atorvastatin (Atorvastatin Calcium) 40 Mg Tab 40 Mg PO HS Aspirin 81 (Aspirin) 81 Mg Tabdr 81 Mg PO DAILY Mirtazapine 15 Mg Tab 15 Mg PO HS Enalapril (Enalapril Maleate) 10 Mg Tab 10 Mg PO DAILY ROS Review of Systems ROS Limitations: Altered Mental Status General / Constitutional: No: Fever Eyes: No: Visual changes HENT: No: Headaches Cardiovascular: No: Chest Pain or Discomfort Respiratory: No: Shortness of Breath Gastrointestinal: Positive: Nausea, Vomiting, No: Abdominal Pain Genitourinary: Positive: Hematuria, Flank Pain, No: Dysuria Musculoskeletal: No: Pain Skin: No Rash Neurologic: No: Weakness Psychiatric: No: Depression Endocrine: No: Polydipsia Hematologic/Lymphatic: No: Easy Bruising Past Family Social History Allergies: Coded Allergies: propofol (Verified Allergy, Severe, Hallucinations, 07/18/17) Family History Unable to obtain secondary to patient's dementia/current medical status Physical Exam Vital Signs Vital Signs Date Time Temp Pulse Resp B/P (MAP) Pulse Ox O2 Delivery O2 Flow Rate FiO2 07/19/17 06:01 60 21 96/53 (67) 97 07/19/17 05:01 62 21 121/70 (87) 97 07/19/17 04:10 60 16 95/54 (68) 96 07/19/17 04:02 60 16 92/50 (64) 97 07/19/17 03:37 60 07/19/17 03:06 98.2 66 12 104/54 (71) 96 07/19/17 02:02 63 16 96/47 (63) 97 07/19/17 02:00 64 07/19/17 02:00 64 15 88/47 (61) 97 07/19/17 01:24 95 Nasal Cannula 2.00 07/19/17 01:05 62 16 94/52 (66) 96 07/19/17 01:00 56 16 86/47 (60) 92 07/19/17 00:00 60 07/19/17 00:00 97.6 56 14 108/54 (72) 94 07/18/17 23:05 56 16 97/53 (68) 92 07/18/17 23:00 56 16 84/42 (56) 90 07/18/17 22:15 64 07/18/17 22:10 97.5 62 16 98/57 (71) 93 07/18/17 21:54 62 16 97/57 (70) 97 07/18/17 20:30 62 18 101/61 (74) 97 Room Air 07/18/17 19:00 64 18 107/57 (74) 96 Room Air 07/18/17 19:00 64 16 98 Room Air 07/18/17 18:21 66 18 89/51 (64) 97 Room Air 07/18/17 17:25 73 18 85/57 (66) 98 Room Air 07/18/17 17:22 73 07/18/17 17:04 97.4 72 18 74/48 (57) 96 Physical Exam GENERAL: This is a well-nourished well-developed appropriately stated age patient, responding to yes and no questions. SKIN: Warm and dry. HEAD: Atraumatic. Normocephalic. EYES: Pupils equal and round. No scleral icterus. No injection or drainage. ENT: No nasal bleeding or discharge. Mucous membranes pink and moist. Uvula midline NECK: Trachea midline. No JVD. CARDIOVASCULAR: Normal rate, regular rhythm. RESPIRATORY: No accessory muscle use. Clear to auscultation. Breath sounds equal bilaterally. GASTROINTESTINAL: Abdomen soft, non-tender, nondistended. No guarding. Normoactive bowel sounds 4 quadrants MUSCULOSKELETAL: Extremities without clubbing, cyanosis, or edema. No obvious deformities. NEUROLOGICAL: GCS 14 Awake and alert. RASS 0. No gross focal/sensory deficits. Follows commands in all 4 extremities. Laboratory Laboratory Tests Test 07/18/17 17:30 07/18/17 19:00 07/18/17 19:28 07/18/17 23:16 White Blood Count 19.1 Red Blood Count 4.36 Hemoglobin 12.7 Hematocrit 37.4 Mean Corpuscular Volume 85.9 Mean Corpuscular Hemoglobin 29.2 Mean Corpuscular Hemoglobin Concent 34.0 Red Cell Distribution Width 13.3 Platelet Count 222 Mean Platelet Volume 6.9 Neutrophils (%) (Auto) 89.0 Lymphocytes (%) (Auto) 3.2 Monocytes (%) (Auto) 7.3 Eosinophils (%) (Auto) 0.1 Basophils (%) (Auto) 0.4 Neutrophils # (Auto) 17.0 Lymphocytes # (Auto) 0.6 Monocytes # (Auto) 1.4 Eosinophils # (Auto) 0.0 Basophils # (Auto) 0.1 CBC Comment AUTO DIFF Differential Comment AUTO DIFF CONFIRMED Prothrombin Time 11.8 Prothromb Time International Ratio 1.1 Activated Partial Thromboplast Time 33.3 Blood Urea Nitrogen 22 Creatinine 1.00 Random Glucose 153 Total Protein 6.9 Albumin 3.2 Calcium Level 9.6 Alkaline Phosphatase 306 Aspartate Amino Transf (AST/SGOT) 15 Alanine Aminotransferase (ALT/SGPT) 8 Total Bilirubin 1.4 Sodium Level 134 Potassium Level 4.0 Chloride Level 102 Carbon Dioxide Level 22.4 Anion Gap 10 Estimat Glomerular Filtration Rate 73 Lactic Acid Level 1.0 1.1 0.8 Total Creatine Kinase 52 Troponin I 0.02 Lipase 88 Urine Color YELLOW Urine Turbidity CLOUDY Urine pH 6.0 Urine Specific [place] 1.015 Urine Protein 100 Urine Glucose (UA) NEG Urine Ketones TRACE Urine Occult Blood LARGE Urine Nitrite POS Urine Bilirubin NEG Urine Leukocyte Esterase MOD Urine RBC 25-49 Urine WBC 25-49 Urine WBC Clumps FEW Urine Squamous Epithelial Cells 0-5 Urine Amorphous Sediment FEW Urine Bacteria MANY Microscopic Urinalysis Comment CULTURE INDICATED Test 07/18/17 23:20 07/19/17 06:00 White Blood Count 13.7 Red Blood Count 3.92 Hemoglobin 11.0 Hematocrit 34.0 Mean Corpuscular Volume 86.7 Mean Corpuscular Hemoglobin 28.0 Mean Corpuscular Hemoglobin Concent 32.3 Red Cell Distribution Width 13.2 Platelet Count 208 Mean Platelet Volume 6.9 Neutrophils (%) (Auto) 86.0 Lymphocytes (%) (Auto) 4.7 Monocytes (%) (Auto) 8.5 Eosinophils (%) (Auto) 0.6 Basophils (%) (Auto) 0.2 Neutrophils # (Auto) 11.8 Lymphocytes # (Auto) 0.6 Monocytes # (Auto) 1.2 Eosinophils # (Auto) 0.1 Basophils # (Auto) 0.0 CBC Comment DIFF FINAL Differential Comment Date/Time Source Procedure Growth Status 07/18/17 17:35 Blood Peripheral Aerobic Blood Culture Pending Received 07/18/17 17:35 Blood Peripheral Anaerobic Blood Culture Pending Received 07/18/17 19:00 Urine Clean Catch Urine Culture Pending Received Result Diagram: 07/19/17 0600 07/18/17 1730 Imaging Last [address] 07/18/17 1741 Signed Impressions: Service Date/Time: Tuesday, July 18, 2017 17:54 - CONCLUSION: Normal examination. Walt Leonard MD Chest X-Ray [id number]/18/[id number] Signed Impressions: Service Date/Time: Tuesday, July 18, 2017 17:48 - CONCLUSION: No acute cardiopulmonary abnormality is identified. Ovidio Barba MD Abdomen/Pelvis CT [id number]/18/[id number] Signed Impressions: Service Date/Time: Tuesday, July 18, 2017 18:00 - CONCLUSION: 3.5 cm low density lesion lower pole of the right kidney felt to represent a cyst versus solid mass . No evidence of renal or ureteral calculi or obstructive uropathy. Walt Leonard MD Septic Shock Reassessment Heart: Murmur (aortic valve replacement) Lungs: Clear Skin: Warm Peripheral Pulses: Bounding Right Radial Bounding Left Radial Bounding Right Dorsalis Pedis Bounding Left Dorsalis Pedis Capillary Refill: Brisk Caprini VTE Risk Assessment Caprini VTE Risk Assessment: Mod/High Risk (score >= 2) Caprini Risk Assessment Model Point Value = 1 Point Value = 2 Point Value = 3 Point Value = 5 Age 41-60 Minor surgery BMI > 25 kg/m2 Swollen legs Varicose veins or History of unexplained or recurrent spontaneous Oral contraceptives or hormone replacement Sepsis (< 1 month) Serious lung disease, including pneumonia (< 1 month) Abnormal pulmonary function Acute myocardial infarction Congestive heart failure (< 1 month) History of inflammatory bowel disease Medical patient at bed rest Age 61-74 Arthroscopic surgery Major open surgery (> 45 min) Laparoscopic surgery (> 45 min) Malignancy Confined to bed (> 72 hours) Immobilizing plaster cast Central venous access Age >= 75 History of VTE Family history of VTE Factor V Leiden Prothrombin [id number] Lupus anticoagulant Anticardiolipin antibodies Elevated serum homocysteine Heparin-induced thrombocytopenia Other congenital or acquired thrombophilia Stroke (< 1 month) Elective arthroplasty Hip, pelvis, or leg fracture Acute spinal cord injury (< 1 month) Prophylaxis Regimen Total Risk Factor Score Risk Level Prophylaxis Regimen 0-1 Low Early ambulation 2 Moderate Order ONE of the following: *Sequential Compression Device (SCD) *Heparin 5000 units SQ BID 3-4 Higher Order ONE of the following medications: *Heparin 5000 units SQ TID *Enoxaparin/Lovenox 40 mg SQ daily (WT < 150 kg, CrCl > 30 mL/min) *Enoxaparin/Lovenox 30 mg SQ daily (WT < 150 kg, CrCl > 10-29 mL/min) *Enoxaparin/Lovenox 30 mg SQ BID (WT < 150 kg, CrCl > 30 mL/min) AND/OR *Sequential Compression Device (SCD) 5 or more Highest Order ONE of the following medications: *Heparin 5000 units SQ TID (Preferred with Epidurals) *Enoxaparin/Lovenox 40 mg SQ daily (WT < 150 kg, CrCl > 30 mL/min) *Enoxaparin/Lovenox 30 mg SQ daily (WT < 150 kg, CrCl > 10-29 mL/min) *Enoxaparin/Lovenox 30 mg SQ BID (WT < 150 kg, CrCl > 30 mL/min) AND *Sequential Compression Device (SCD) Assessment and Plan Assessment and Plan This is a 71-year-old male with history of dementia and Parkinson's that presented with urosepsis. The patient normally is being followed by urologist and routinely is on Flomax daily which he stopped for approximately for 5 days, secondary to misinformation on knowledge on the medication right caregiver. Assessment Urosepsis Leukocytosis History of hypertension Diabetes mellitus CAD History of CABG History of PCI Dyslipidemia Dementia Parkinson's Plan Neurologic: Neurochecks per ICU protocol Continue home medications donepezil, ropinirole, levodopa/carbidopa Remeron at at bedtime 07/18 CT brain negative Respiratory: Maintain O2 sat greater than 92% O2 14 L/m if required Bronchodilators when necessary Cardiovascular: Maintain MAP > 65 mmHg Continue ASA 81 mg, statin Renal: External condom catheter Continue Flomax -- Strict I/Os FEN/GI: Normal saline currently 125 cc/hour, will decrease to 84/hr Heart healthy diet Consult speech therapy for formal swallow Heme/ID: Continue empiric vancomycin and Zosyn Follow-up blood and urine cultures WBC count trending down, continue to monitor CBC Endocrine: Glucose monitoring per ICU protocol, low-dose -- SSI Prophylaxis: GI Prophylaxis Famotidine DVT Prophylaxis -- SCDs Heparin subcutaneous every 8hrs Lines: Peripheral IVs providing adequate access. Central line if indicated Dispo: my billing statement This patient remains critically ill with one or more organ systems which are or may become a threat to life. I have spent in excess of 30 minutes discontinuously in the care and management of this patient. This time is exclusive of procedures, and includes, but is not limited to, evaluation of the patient, review of the medical record, discussions with family, consultants, nursing staff, or respiratory therapy, and documentation in the medical record. Patient medical status improved this a.m., with initiation of antibiosis and fluid resuscitation. Patient will be downgraded to Level 2 this a[facility] Status Full Discussed Condition With RUBBER CUTTING MACHINE TENDER at bedside Velma Shepherd MD Jul 19, 2017 07:00
[2017-07-19] MEDS ORDERED: PNEUMOCOCCAL POLYVALENT INJ 25 MCG/0.5 ML SYR IM ONE (09:00)
[2017-07-19] MEDS: ASPIRIN EC 81 MG TABEC PO SCH (09:00)
[2017-07-19] MEDS ORDERED: SODIUM PHOSPHATE INJ 15 MMOL in SODIUM CHLORIDE 0.9% INJ 150 ML IV ONE (09:00)
[2017-07-19] MEDS: FAMOTIDINE 20 MG/2 ML VIAL IV PUSH SCH ×2 (09:44→20:22)
[2017-07-19] MEDS: SODIUM CHLORIDE 0.9% FLUSH 10 ML FLUSH IV FLUSH SCH ×2 (09:44→20:22)
[2017-07-19] MEDS: DONEPEZIL HCL 5 MG TAB PO SCH (09:44)
[2017-07-19] MEDS: VANCOMYCIN INJ 1,500 MG in SODIUM CHLORID 0.9% 500 ML INJ 500 ML IV SCH (09:53)
[2017-07-19] MEDS: CARBIDOPA/LEVODOPA 25 MG/100 MG TAB PO SCH ×2 (14:00→20:22)
--- NOTE | 2017-07-19 14:25 | HHI.PR ---
Subjective Remarks Patient seen and evaluated today in follow-up for evidence of metabolic encephalopathy, improved. More awake and out of bed to chair. Ambulatory with physical therapy. Care plan discussed with [employer] and with patient Objective Vitals Vital Signs Date Time Temp Pulse Resp B/P (MAP) Pulse Ox O2 Delivery O2 Flow Rate FiO2 07/19/17 14:01 56 13 137/71 (93) 95 07/19/17 13:01 56 13 137/71 (93) 95 07/19/17 12:01 58 17 118/64 (82) 96 07/19/17 11:01 98.5 54 31 97/64 (75) 97 07/19/17 11:00 54 17 99 07/19/17 11:00 54 17 99 07/19/17 11:00 54 17 99 07/19/17 10:00 60 15 109/71 (84) 97 07/19/17 09:00 60 15 89/51 (64) 97 07/19/17 08:00 56 13 84/49 (61) 97 07/19/17 07:00 56 07/19/17 07:00 98.3 56 14 84/49 (61) 97 07/19/17 06:01 60 21 96/53 (67) 97 07/19/17 05:01 62 21 121/70 (87) 97 07/19/17 04:10 60 16 95/54 (68) 96 07/19/17 04:02 60 16 92/50 (64) 97 07/19/17 03:37 60 07/19/17 03:06 98.2 66 12 104/54 (71) 96 07/19/17 02:02 63 16 96/47 (63) 97 07/19/17 02:00 64 07/19/17 02:00 64 15 88/47 (61) 97 07/19/17 01:24 95 Nasal Cannula 2.00 07/19/17 01:05 62 16 94/52 (66) 96 07/19/17 01:00 56 16 86/47 (60) 92 07/19/17 00:00 60 07/19/17 00:00 97.6 56 14 108/54 (72) 94 07/18/17 23:05 56 16 97/53 (68) 92 07/18/17 23:00 56 16 84/42 (56) 90 07/18/17 22:15 64 07/18/17 22:10 97.5 62 16 98/57 (71) 93 07/18/17 21:54 62 16 97/57 (70) 97 07/18/17 20:30 62 18 101/61 (74) 97 Room Air 07/18/17 19:00 64 18 107/57 (74) 96 Room Air 07/18/17 19:00 64 16 98 Room Air 07/18/17 18:21 66 18 89/51 (64) 97 Room Air 07/18/17 17:25 73 18 85/57 (66) 98 Room Air 07/18/17 17:22 73 07/18/17 17:04 97.4 72 18 74/48 (57) 96 I/O 07/18/17 07/18/17 07/18/17 07/19/17 07/19/17 07/19/17 07:00 15:00 23:00 07:00 15:00 23:00 Intake Total 2300 ml 2100 ml 870 ml Output Total 100 ml 550 ml Balance 2200 ml 1550 ml 870 ml Intake Oral 100 ml IV Total 2300 ml 2000 ml 870 ml Output Urine Total 100 ml 550 ml # Voids 1 Result Diagram: 07/19/17 0600 07/19/17 0600 Imaging Last Impressions Head CT 07/18/17 174 Signed Impressions: Service Date/Time: Tuesday, July 18, 2017 17:54 - CONCLUSION: Normal examination. Walt Leonard MD Chest X-Ray 07/18/171718 Signed Impressions: Service Date/Time: Tuesday, July 18, 2017 17:48 - CONCLUSION: No acute cardiopulmonary abnormality is identified. Ovidio Barba MD Abdomen/Pelvis CT [id number]/18/171718 Signed Impressions: Service Date/Time: Tuesday, July 18, 2017 18:00 - CONCLUSION: 3.5 cm low density lesion lower pole of the right kidney felt to represent a cyst versus solid mass . No evidence of renal or ureteral calculi or obstructive uropathy. Walt Leonard MD Objective Remarks GENERAL: This is a well-nourished, well-developed patient, in no apparent distress. CARDIOVASCULAR: Regular rate and rhythm without murmurs, gallops, or rubs. RESPIRATORY: Clear to auscultation. Breath sounds equal bilaterally. No wheezes , rales, or rhonchi. GASTROINTESTINAL: Abdomen soft, non-tender, nondistended. Normal active bowel sounds MUSCULOSKELETAL: Extremities without clubbing, cyanosis, or edema. NEURO: Alert, oriented at baseline A/P Problem List: (1) UTI (urinary tract infection) ICD Code: N39.0 - Urinary tract infection, site not specified Plan: Continue vancomycin and Zosyn for gram-negative armin and urine (2) Metabolic encephalopathy ICD Code: G93.41 - Metabolic encephalopathy Plan: Resolved, patient has underlying dementia which appears to be at baseline Continue Parkinsonian medicines (3) Sepsis ICD Code: A41.9 - Sepsis, unspecified organism Status: Acute Plan: Hypotension, leukocytosis, uti Improved with iv abx, and Ivf Discharge Planning transfer to floor [facility] eval d/c 1-2 days pending cultures Problem Qualifiers (1) Sepsis: Qualified Codes: A41.9 - Sepsis, unspecified organism Lesley Pyle MD Jul 19, 2017 14:25
--- NOTE | 2017-07-19 20:05 | EKG ---
Date Performed: 07/19/2017 Time Performed: 20:37:08 PTAGE: 71 years EKG: Sinus rhythm RIGHT BUNDLE BRANCH BLOCK MODERATE T-WAVE ABNORMALITY, CONSIDER INFERIOR ISCHEMIA ABNORMAL ECG INTER PRETATION BASED ON A DEFAULT AGE OF 40 YEARS PREVIOUS TRACING : 07/18/2017 17.13 DOCTOR: Heber Swenson Interpretating Date/Time 07/20/2017 13:55:51
[2017-07-19] MEDS: MIRTAZAPINE 15 MG TAB PO SCH (20:22)
[2017-07-19] MEDS: ATORVASTATIN 40 MG TAB PO SCH (20:22)
[2017-07-19] MEDS: TAMSULOSIN HCL 0.4 MG CAP PO SCH (20:23)
[2017-07-19] MEDS ORDERED: ACETAMINOPHEN 325 MG TAB PO ONE (23:30)
[2017-07-20] VITALS (12 sets, daily range): BP systolic 108–153; BP diastolic 55–80; PULSE 67–88; RESP 18–20; TEMP 96.3–101.4; O2SAT 91–98
[2017-07-20] MEDS: SODIUM CHLOR 0.9% 1000 ML INJ 1,000 ML IV SCH ×2 (00:22→23:23)
[2017-07-20] MEDS ORDERED: LORazepam 2 MG/ML VIAL IV PUSH ONE ×2 (01:15→22:00)
[2017-07-20] MEDS: PIPERACIL-TAZO 4.5 GM PREMIX 100 ML IV SCH ×2 (01:34→09:15)
[2017-07-20] MEDS: CARBIDOPA/LEVODOPA 25 MG/100 MG TAB PO SCH ×4 (02:00→21:10)
[2017-07-20 02:32] LABS: BLOOD, URINE NEG (NEG); GLUCOSE,URINE NEG (NEG); KETONE, URINE NEG (NEG); NITRITE,URINE NEG (NEG); PH, URINE 5.5 (5.0-8.5)
[2017-07-20 02:37] LABS: URINE COLOR STRAW (YELLW/STRAW)
[2017-07-20 02:38] LABS: SQUAMOUS EPITHELIAL CELL URINE 0-5 /hpf (0-5)
[2017-07-20 02:39] LABS: COMMENT (UR) CULT NOT INDICATED; CULTURE IF INDICATED CULT NOT INDICATED
[2017-07-20] MEDS: VANCOMYCIN INJ 1,500 MG in SODIUM CHLORID 0.9% 500 ML INJ 500 ML IV SCH (03:04)
[2017-07-20] MEDS: CHLORHEXIDINE GLUCONATE 2 % 1 PACK (2 CLOTHS) TOP SCH (03:09)
[2017-07-20 06:37] LABS: HEMATOCRIT 36.8 % (39.0-51.0); MEAN CELL VOLUME 87.1 FL (80.0-100.0); MEAN CORPUSCULAR HEMOGLOBIN 28.5 PG (27.0-34.0); MEAN CORPUSCULAR HGB CONC 32.7 % (32.0-36.0); PLATELET COUNT 236 TH/MM3 (150-450); RED BLOOD COUNT 4.23 MIL/MM3 (4.50-5.90); RED CELL DISTRIBUTION WIDTH 13.1 % (11.6-17.2); REVIEW FLAG FINAL
[2017-07-20 06:45] LABS: POTASSIUM 3.8 MEQ/L (3.5-5.1)
[2017-07-20 06:53] LABS: BICARBONATE 25.8 MEQ/L (21.0-32.0)
[2017-07-20 06:55] LABS: WHITE BLOOD COUNT 6.2 TH/MM3 (4.0-11.0)
[2017-07-20] MEDS: DONEPEZIL HCL 5 MG TAB PO SCH (09:15)
[2017-07-20] MEDS: ASPIRIN EC 81 MG TABEC PO SCH (09:15)
[2017-07-20] MEDS: FAMOTIDINE 20 MG/2 ML VIAL IV PUSH SCH (09:16)
[2017-07-20] MEDS: HEPARIN SODIUM - SQ 10,000 UNITS/ML VIAL SQ SCH ×3 (09:17→23:21)
[2017-07-20] MEDS: SODIUM CHLORIDE 0.9% FLUSH 10 ML FLUSH IV FLUSH SCH ×2 (09:17→21:10)
--- NOTE | 2017-07-20 11:59 | HHI.PR ---
Subjective Remarks Seen and evaluated today in follow-up for UTI with sepsis, sepsis is improved though the patient did have elevated temperature 101.4. Urine cultures do show Escherichia coli which is questionably sensitive to the penicillins, antibiotics have been changed Objective Vitals Vital Signs Date Time Temp Pulse Resp B/P (MAP) Pulse Ox O2 Delivery O2 Flow Rate FiO2 07/20/17 08:00 97.0 76 18 135/68 (90) 98 07/20/17 04:00 96.3 67 20 146/67 (93) 97 07/20/17 00:30 96.4 97 07/20/17 00:00 101.4 72 20 127/63 (84) 98 07/19/17 20:40 96 Nasal Cannula 2.00 07/19/17 20:00 99.4 74 19 143/74 (97) 93 07/19/17 18:01 64 19 140/64 (89) 98 07/19/17 17:01 60 17 124/62 (82) 98 07/19/17 16:01 56 20 99/56 (70) 07/19/17 16:00 58 16 07/19/17 15:01 98.6 58 19 95/57 (70) 96 07/19/17 15:00 51 07/19/17 14:01 56 13 137/71 (93) 95 07/19/17 13:01 56 13 137/71 (93) 95 07/19/17 12:01 58 17 118/64 (82) 96 I/O 07/19/17 07/19/17 07/19/17 07/20/17 07/20/17 07/20/17 07:00 15:00 23:00 07:00 15:00 23:00 Intake Total 2100 ml 4050 ml 520 ml 617 ml Output Total 550 ml 500 ml 450 ml Balance 1550 ml 3550 ml 70 ml 617 ml Intake Oral 100 ml 480 ml 420 ml 240 ml IV Total 2000 ml 3570 ml 100 ml 377 ml Output Urine Total 550 ml 500 ml 450 ml # Voids 4 10 # Bowel Movements 1 Result Diagram: 07/20/17 04507/20/17 0450 Objective Remarks GENERAL: This is a well-nourished, well-developed patient, in no apparent distress. CARDIOVASCULAR: Regular rate and rhythm without murmurs, gallops, or rubs. RESPIRATORY: Clear to auscultation. Breath sounds equal bilaterally. No wheezes , rales, or rhonchi. GASTROINTESTINAL: Abdomen soft, non-tender, nondistended. Normal active bowel sounds MUSCULOSKELETAL: Extremities without clubbing, cyanosis, or edema. NEURO: Alert, oriented at baseline A/P Problem List: (1) UTI (urinary tract infection) ICD Code: N39.0 - Urinary tract infection, site not specified Plan: Continue cipro for e coli uti add probiotic (2) Metabolic encephalopathy ICD Code: G93.41 - Metabolic encephalopathy Plan: Resolved, patient has underlying dementia which appears to be at baseline Continue Parkinsonian medicines (3) Sepsis ICD Code: A41.9 - Sepsis, unspecified organism Status: Acute Plan: resolved Discharge Planning [facility] eval in am if no fever Problem Qualifiers (1) Sepsis: Qualified Codes: A41.9 - Sepsis, unspecified organism Lesley Pyle MD Jul 20, 2017 11:59
[2017-07-20] MEDS ORDERED: CIPROFLOXACIN 500 MG TAB PO SCH (12:00)
--- NOTE | 2017-07-20 12:01 | HHI.FF ---
Face to Face Verification Diagnosis: (1) Parkinson's disease dementia Physical Therapy Order: Evaluate and Treat, Improve ambulation Occupational Therapy Order: Evaluate and Treat, Improve ADL Group Home Supervisor Order: To Evaluate: Living conditions/environment Order: To Provide: Long range planning I have seen patient Noel Lerma on 07/20/17. My clinical findings support the need for the requested home health care services because: Impaired cognition/judgement I certify that my clinical findings support that this patient is homebound because: Impaired cognitive ability/safety Lesley Pyle MD Jul 20, 2017 12:00
[2017-07-20] MEDS: LACTOBACILLUS ACIDOPHILUS 1 GM PACKET PO SCH ×2 (13:00→18:51)
[2017-07-20] MEDS ORDERED: HALOPERIDOL LACTATE 5 MG/ML AMP IM ONE (14:15)
[2017-07-20] MEDS ORDERED: QUEtiapine FUMARATE 25 MG TAB PO PRN (18:15)
[2017-07-20] MEDS: ATORVASTATIN 40 MG TAB PO SCH (21:10)
[2017-07-20] MEDS: MIRTAZAPINE 15 MG TAB PO SCH (21:10)
[2017-07-20] MEDS: FAMOTIDINE 20 MG TAB PO SCH (21:10)
[2017-07-20] MEDS: TAMSULOSIN HCL 0.4 MG CAP PO SCH (21:10)
[2017-07-20] MEDS: SULFAMETHOXAZOLE-TRIMETHOPRIM 400-80 MG TAB PO SCH (21:54)
[2017-07-20] MEDS: ACETAMINOPHEN 325 MG TAB PO PRN (22:02)
[2017-07-21] VITALS (9 sets, daily range): BP systolic 104–146; BP diastolic 67–82; PULSE 56–93; RESP 14–20; TEMP 96.3–98.2; O2SAT 93–99
[2017-07-21] MEDS: CARBIDOPA/LEVODOPA 25 MG/100 MG TAB PO SCH ×4 (01:44→21:14)
[2017-07-21] MEDS: CHLORHEXIDINE GLUCONATE 2 % 1 PACK (2 CLOTHS) TOP SCH (04:00)
[2017-07-21] MEDS: HEPARIN SODIUM - SQ 10,000 UNITS/ML VIAL SQ SCH ×3 (10:26→23:29)
[2017-07-21] MEDS: FAMOTIDINE 20 MG TAB PO SCH ×2 (10:26→21:15)
[2017-07-21] MEDS: DONEPEZIL HCL 5 MG TAB PO SCH (10:26)
[2017-07-21] MEDS: ASPIRIN EC 81 MG TABEC PO SCH (10:26)
[2017-07-21] MEDS: SODIUM CHLORIDE 0.9% FLUSH 10 ML FLUSH IV FLUSH SCH ×2 (10:27→21:14)
[2017-07-21] MEDS: SULFAMETHOXAZOLE-TRIMETHOPRIM 400-80 MG TAB PO SCH ×2 (10:29→21:00)
[2017-07-21] MEDS: LACTOBACILLUS ACIDOPHILUS 1 GM PACKET PO SCH ×3 (10:33→16:57)
[2017-07-21] MEDS ORDERED: GLUCAGON 1 MG/ML VIAL OTHER PRN (12:00)
[2017-07-21] MEDS ORDERED: DEXTROSE 50% IN WATER 50 ML VIAL(D50) IV PUSH PRN (12:00)
--- NOTE | 2017-07-21 12:16 | HHI.PR ---
Subjective Remarks Patient seen in follow-up for Metabolic encephalopathy and for sepsis related to urinary tract infection. Agitated overnight requiring Seroquel and a sitter Objective Vitals Vital Signs Date Time Temp Pulse Resp B/P (MAP) Pulse Ox O2 Delivery O2 Flow Rate FiO2 07/21/17 07:50 98.2 64 20 146/82 (103) 98 07/21/17 04:00 96.4 72 20 104/67 (79) 99 07/20/17 23:45 100.9 75 18 108/55 (72) 96 07/20/17 23:00 71 07/20/17 20:56 93 Nasal Cannula 2.00 07/20/17 20:00 100.8 84 18 142/69 (93) 91 07/20/17 16:00 99.5 67 20 153/73 (99) 96 07/20/17 15:00 75 07/20/17 13:00 97.4 88 20 151/80 (103) I/O 07/20/17 07/20/17 07/20/17 07/21/17 07/21/17 07/21/17 07:00 15:00 23:00 07:00 15:00 23:00 Intake Total 617 ml 100 ml 645 ml 52 ml Output Total 100 ml Balance 617 ml 100 ml 545 ml 52 ml Intake Oral 240 ml 600 ml IV Total 377 ml 100 ml 45 ml 52 ml Output Urine Total 100 ml # Voids 10 1 1 Result Diagram: 07/20/17 0450 07/21/17 0614 Objective Remarks GENERAL: This is a well-nourished, well-developed patient, in no apparent distress. CARDIOVASCULAR: Regular rate and rhythm without murmurs, gallops, or rubs. RESPIRATORY: Clear to auscultation. Breath sounds equal bilaterally. No wheezes , rales, or rhonchi. GASTROINTESTINAL: Abdomen soft, non-tender, nondistended. Normal active bowel sounds MUSCULOSKELETAL: Extremities without clubbing, cyanosis, or edema. NEURO: Alert, oriented at baseline A/P Problem List: (1) UTI (urinary tract infection) ICD Code: N39.0 - Urinary tract infection, site not specified Plan: Continue bactrim for e coli uti probiotic complicated due to DM, sepsis (2) Metabolic encephalopathy ICD Code: G93.41 - Metabolic encephalopathy Plan: Resolved, patient has underlying cognitive impairment per spouse which may be worse due to hospitalization, sepsis. Cipro discontinued due to possible side effects Continue Parkinsonian medicines (3) Sepsis ICD Code: A41.9 - Sepsis, unspecified organism Status: Acute Plan: Leukocytosis, hypotension resolved Secondary to UTI, Escherichia coli (4) Diabetes mellitus ICD Code: E11.9 - Diabetes mellitus Status: Acute Plan: Continue with sliding scale, diabetic diet, (5) HTN (hypertension) ICD Code: I10 - Essential (primary) hypertension Plan: resume home enalapril (patient was initially hypotensive and medicine was held ) Assessment and Plan Care plan and diagnosis and prognosis discussed with patient's spouse and friend at bedside. Discussed with nursing team heparin sq q8h Discharge Planning May need [facility] facility at discharge Problem Qualifiers (1) Sepsis: Qualified Codes: A41.9 - Sepsis, unspecified organism Lesley Pyle MD Jul 21, 2017 12:16
[2017-07-21] MEDS: INSULIN ASPART SUPPLEMENTAL SCALE SQ SCH ×3 (12:55→21:00)
--- NOTE | 2017-07-21 14:33 | RADRPT ---
EXAM DATE/TIME: 07/21/2017 14:06 [place] COMPARISON: CT BRAIN W/O CONTRAST, July 18, 2017, 17:54. INDICATIONS : Altered mental status. RADIATION DOSE: 62.98 CTDIvol (mGy) MEDICAL HISTORY : Cerebrovascular disease. Myocardial infarction. Diabetes mellitus type 2.Hypertension. SURGICAL HISTORY : CABG Inguinal hernia repair.Cholecystectomy.Appendectomy. ENCOUNTER: Initial ACUITY: 1 day PAIN SCALE: 0/10 LOCATION: cranial TECHNIQUE: Multiple contiguous axial images were obtained of the head. Using automated exposure control and adj ustment of the mA and/or kV according to patient size, radiation dose was kept as low as reasonably a chievable to obtain optimal diagnostic quality images. DICOM format image data is available electro nically for review and comparison. FINDINGS: CEREBRUM: Mild diffuse cerebral atrophy consistent with age. The ventricles are normal for degree of atrophy. No evidence of midline shift, mass lesion, hemorrhage or acute infarction. No extra-axial fluid ananth ections are seen. POSTERIOR FOSSA: The cerebellum and brainstem are intact. The 4th ventricle is midline. The cerebellopontine angle i s unremarkable. EXTRACRANIAL: The visualized portion of the orbits is intact. SKULL: The calvaria is intact. No evidence of skull fracture. CONCLUSION: 1. No acute intracranial abnormality. Erich Morelos MD on July 21, 2017 at 14:30 Board Certified Radiologist. This report was verified electronically.
[2017-07-21] MEDS ORDERED: PHARMACY ORDERED LAB ONE (14:45)
[2017-07-21] MEDS: ACETAMINOPHEN 325 MG TAB PO PRN (16:57)
[2017-07-21] MEDS: MIRTAZAPINE 15 MG TAB PO SCH (21:15)
[2017-07-21] MEDS: ATORVASTATIN 40 MG TAB PO SCH (21:15)
[2017-07-21] MEDS: TAMSULOSIN HCL 0.4 MG CAP PO SCH (21:15)
[2017-07-22] VITALS: BP 101/64; PULSE 60; RESP 20; TEMP 95.4; O2SAT 98
[2017-07-22] MEDS: CARBIDOPA/LEVODOPA 25 MG/100 MG TAB PO SCH ×2 (01:40→08:36)
[2017-07-22] MEDS: CHLORHEXIDINE GLUCONATE 2 % 1 PACK (2 CLOTHS) TOP SCH (03:31)
[2017-07-22] MEDS: ACETAMINOPHEN 325 MG TAB PO PRN ×2 (03:38→10:43)
[2017-07-22 06:19] LABS: AUTOMATED NEUTROPHIL # 3.1 TH/MM3 (1.8-7.7); BASOPHIL % 0.7 % (0.0-2.0); EOSINOPHIL # 0.1 TH/MM3 (0-0.4); EOSINOPHIL % 1.5 % (0.0-4.0); HEMATOCRIT 37.7 % (39.0-51.0); HEMO FLAGS DIFF FINAL; LYMPH % 16.4 % (9.0-44.0); LYMPHOCYTE # 0.8 TH/MM3 (1.0-4.8); MEAN CELL VOLUME 85.7 FL (80.0-100.0); MEAN CORPUSCULAR HEMOGLOBIN 28.2 PG (27.0-34.0); MONO % 15.5 % (0.0-8.0); NEUT % 65.9 % (16.0-70.0); PLATELET COUNT 245 TH/MM3 (150-450); RED BLOOD COUNT 4.41 MIL/MM3 (4.50-5.90); RED CELL DISTRIBUTION WIDTH 12.8 % (11.6-17.2); WHITE BLOOD COUNT 4.7 TH/MM3 (4.0-11.0)
[2017-07-22 06:36] LABS: POTASSIUM 3.8 MEQ/L (3.5-5.1)
[2017-07-22 06:45] LABS: BICARBONATE 30.9 MEQ/L (21.0-32.0)
[2017-07-22 07:44] VITALS: O2SAT 97
[2017-07-22] MEDS: INSULIN ASPART SUPPLEMENTAL SCALE SQ SCH ×2 (07:49→12:00)
[2017-07-22 08:00] VITALS: BP 149/70; PULSE 66; RESP 20; TEMP 97.6; O2SAT 97
[2017-07-22] MEDS: HEPARIN SODIUM - SQ 10,000 UNITS/ML VIAL SQ SCH (08:36)
[2017-07-22] MEDS: SULFAMETHOXAZOLE-TRIMETHOPRIM 400-80 MG TAB PO SCH (08:36)
[2017-07-22] MEDS: DONEPEZIL HCL 5 MG TAB PO SCH (08:36)
[2017-07-22] MEDS: FAMOTIDINE 20 MG TAB PO SCH (08:36)
[2017-07-22] MEDS: SODIUM CHLORIDE 0.9% FLUSH 10 ML FLUSH IV FLUSH SCH (08:37)
[2017-07-22] MEDS: ASPIRIN EC 81 MG TABEC PO SCH (08:37)
[2017-07-22] MEDS: LACTOBACILLUS ACIDOPHILUS 1 GM PACKET PO SCH (08:40)
[2017-07-22] MEDS ORDERED: ENALAPRIL MALEATE 10 MG TAB PO SCH (09:00)
--- NOTE | 2017-07-22 10:51 | HHI.PR ---
Subjective Remarks Patient seen and evaluated today in follow-up for metabolic encephalopathy with sepsis. Patient does have underlying dementia and appears slightly improved today. He may be closer to his baseline. We'll discuss with family. Tolerating antibiotics without difficulty Objective Vitals Vital Signs Date Time Temp Pulse Resp B/P (MAP) Pulse Ox O2 Delivery O2 Flow Rate FiO2 07/22/17 08:00 97.6 66 20 149/70 (96) 97 07/22/17 07:44 97 Nasal Cannula 2.00 07/22/17 00:00 95.4 60 20 101/64 (76) 98 07/21/17 20:42 93 Nasal Cannula 2.00 07/21/17 20:00 96.3 57 16 129/73 (91) 98 07/21/17 16:00 96.5 58 14 136/76 (96) 98 07/21/17 15:00 84 07/21/17 14:20 94 07/21/17 12:00 96.6 56 14 123/75 (91) 98 I/O 07/21/17 07/21/17 07/21/17 07/22/17 07/22/17 07/22/17 07:00 15:00 23:00 07:00 15:00 23:00 Intake Total 52 ml 309.5 ml 120 ml 240 ml Balance 52 ml 309.5 ml 120 ml 240 ml Intake Oral 297 ml 120 ml 240 ml IV Total 52 ml 12.5 ml # Voids 1 3 1 3 1 # Bowel Movements 0 0 1 Result Diagram: 07/22/17 0555 07/22/17 0555 Objective Remarks GENERAL: This is a well-nourished, well-developed patient, in no apparent distress. CARDIOVASCULAR: Regular rate and rhythm without murmurs, gallops, or rubs. RESPIRATORY: Clear to auscultation. Breath sounds equal bilaterally. No wheezes , rales, or rhonchi. GASTROINTESTINAL: Abdomen soft, non-tender, nondistended. Normal active bowel sounds MUSCULOSKELETAL: Extremities without clubbing, cyanosis, or edema. NEURO: Alert, oriented at baseline A/P Problem List: (1) UTI (urinary tract infection) ICD Code: N39.0 - Urinary tract infection, site not specified Plan: Continue bactrim for complicated e coli uti probiotic (2) Metabolic encephalopathy ICD Code: G93.41 - Metabolic encephalopathy Plan: Resolved, patient has underlying cognitive impairment per spouse which may be worse due to hospitalization, sepsis. Continue Parkinsonian medicines (3) Sepsis ICD Code: A41.9 - Sepsis, unspecified organism Status: Acute Plan: Leukocytosis, hypotension resolved Secondary to UTI, Escherichia coli (4) Diabetes mellitus ICD Code: E11.9 - Diabetes mellitus Status: Acute Plan: Continue with sliding scale, diabetic diet, (5) HTN (hypertension) ICD Code: I10 - Essential (primary) hypertension Plan: cont home enalapril (patient was initially hypotensive and medicine was held ) Assessment and Plan Care plan and diagnosis and prognosis discussed with patient's spouse and friend at bedside. Discussed with nursing team heparin sq q8h Discharge Planning May need long-term facility at discharge [facility] Problem Qualifiers (1) Sepsis: Qualified Codes: A41.9 - Sepsis, unspecified organism Lesley Pyle MD Jul 22, 2017 10:51
--- NOTE | 2017-07-22 10:54 | HHI.FF ---
Face to Face Verification Diagnosis: (1) Diabetes mellitus (2) Sepsis (3) HTN (hypertension) Physical Therapy Order: Evaluate and Treat Occupational Therapy Order: Evaluate and Treat Home Health Nursing Order: Medical education I have seen patient Noel Lerma on 07/22/17. My clinical findings support the need for the requested home health care services because: Ltd mobility - disease progression Med compliance is questionable I certify that my clinical findings support that this patient is homebound because: Impaired cognitive ability/safety Lesley Pyle MD Jul 22, 2017 10:54
[2017-07-22 12:00] VITALS: BP 111/65; PULSE 62; RESP 16; TEMP 96.5; O2SAT 97
[2017-07-22] MEDS ORDERED: SULF1TAB58 PO (12:27)
--- NOTE | 2017-07-22 12:30 | HHI.DS ---
[place] Discharge Summary Admission Date Jul 18, 2017 at 19:58 Discharge Date: Jul 22, 2017 Admitting Diagnosis sepsis, moderate dehydration, hypotension (1) UTI (urinary tract infection) ICD Code: N39.0 - Urinary tract infection, site not specified (2) Metabolic encephalopathy ICD Code: G93.41 - Metabolic encephalopathy (3) Sepsis ICD Code: A41.9 - Sepsis, unspecified organism Status: Acute (4) Diabetes mellitus ICD Code: E11.9 - Diabetes mellitus Status: Acute (5) HTN (hypertension) ICD Code: I10 - Essential (primary) hypertension Procedures none Brief History - From Admission This is a 71-year-old male who presents to ED accompanied by his for evaluation of altered mental status. The patient's reported, he has not been feeling well since yesterday. The patient's medical history is significant for history of dementia and Parkinson's disease. In the past 24 hours the patient had become more confused, lethargic and somnolent. She reported that he had decreased by mouth intake, reports that he had an episode of nausea and vomiting today. Reports that she noticed blood in his urine - patient was complaining of left-sided flank pain. The patient has a medical history of nephrolithiasis and BPH and home medications include Flomax which the had not been giving him for several days. The patient's urologist is Dr. Marti. Patient at this time denies any chest pain or shortness of breath , patient is alert to person and place, not time. Imaging and laboratory studies were obtained patient was diagnosed with sepsis, critical care medicine was consulted. History PFS Past Medical History Atrial Fibrillation: Yes Cardiac Catheterization: Yes (2004 post mi) Cardiovascular Problems: Yes (CABG) High Cholesterol: Yes Cerebrovascular Accident: Yes Coronary Artery Disease: Yes Diabetes: Yes (Type 2) Patient Takes Glucophage: No Diminished Hearing: No Genitourinary: Yes (prostatitis) Hypertension: Yes Inguinal Hernia: Yes (surgical repair) Kidney Stones: Yes Parkinson's Disease: Yes Immunizations Current: No Influenza Vaccination: Yes ?: Not Past Surgical History Appendectomy: Yes (with choley) Body Medical Devices: cardiac stents 2007 Cholecystectomy: Yes () Coronary Artery Bypass Graft: Yes (09/2008) Coronary Stent: Yes (2004) Genitourinary Surgery: Yes (KIDNEY STONE REMOVAL) Social History Alcohol Use: No Tobacco Use: No Substance Use: No Allergies-Medications Allergies-Medications (Allergen,Severity, Reaction): Coded Allergies: propofol (Verified Allergy, Severe, Hallucinations, 07/18/17) Reported Meds & Prescriptions Reported Meds & Active Scripts Active Flomax (Tamsulosin HCl) 0.4 Mg Cap 0.4 Mg PO HS Reported Sinemet (Carbidopa/Levodopa) 10-100 Mg Tab 1 Tab PO Q8HR Donepezil 5 Mg Tab 5 Mg PO DAILY Ropinirole 0.25 Mg Tab 0.25 Mg PO DIRECTED Atorvastatin (Atorvastatin Calcium) 40 Mg Tab 40 Mg PO HS Aspirin 81 (Aspirin) 81 Mg Tabdr 81 Mg PO DAILY Mirtazapine 15 Mg Tab 15 Mg PO HS Enalapril (Enalapril Maleate) 10 Mg Tab 10 Mg PO DAILY ROS Review of Systems ROS Limitations: Altered Mental Status General / Constitutional: No: Fever Eyes: No: Visual changes HENT: No: Headaches Cardiovascular: No: Chest Pain or Discomfort Respiratory: No: Shortness of Breath Gastrointestinal: Positive: Nausea, Vomiting, No: Abdominal Pain Genitourinary: Positive: Hematuria, Flank Pain, No: Dysuria Musculoskeletal: No: Pain Skin: No Rash Neurologic: No: Weakness Psychiatric: No: Depression Endocrine: No: Polydipsia Hematologic/Lymphatic: No: Easy Bruising CBC/BMP: 07/22/17 0555 07/22/17 0555 Significant Findings Laboratory Tests Test 07/20/17 02:15 07/20/17 04:50 07/21/17 06:14 07/22/17 05:55 Urine WBC 6-8 /hpf (0-5) Red Blood Count 4.23 MIL/MM3 (4.50-5.90) 4.41 MIL/MM3 (4.50-5.90) Hemoglobin 12.0 GM/DL (13.0-17.0) 12.4 GM/DL (13.0-17.0) Hematocrit 36.8 % (39.0-51.0) 37.7 % (39.0-51.0) Chloride Level 108 MEQ/L (98-107) Estimat Glomerular Filtration Rate 86 ML/MIN (>89) Mean Platelet Volume 6.5 FL (7.0-11.0) Monocytes (%) (Auto) 15.5 % (0.0-8.0) Lymphocytes # (Auto) 0.8 TH/MM3 (1.0-4.8) Random Glucose 109 MG/DL (74-106) Imaging Last Impressions Head CT 07/21/17 0000 Signed Impressions: Service Date/Time: July 14:06 - CONCLUSION: 1. No acute intracranial abnormality. Erich Morelos MD Chest X-Ray [id number] Signed Impressions: Service Date/Time: Tuesday, July 18, 2017 17:48 - CONCLUSION: No acute cardiopulmonary abnormality is identified. Ovidio Barba MD Abdomen/Pelvis CT [id number] Signed Impressions: Service Date/Time: Tuesday, July 18, 2017 18:00 - CONCLUSION: 3.5 cm low density lesion lower pole of the right kidney felt to represent a cyst versus solid mass . No evidence of renal or ureteral calculi or obstructive uropathy. Walt Leonard MD PE at Discharge GENERAL: This is a well-nourished, well-developed patient, in no apparent distress. CARDIOVASCULAR: Regular rate and rhythm without murmurs, gallops, or rubs. RESPIRATORY: Clear to auscultation. Breath sounds equal bilaterally. No wheezes , rales, or rhonchi. GASTROINTESTINAL: Abdomen soft, non-tender, nondistended. Normal active bowel sounds MUSCULOSKELETAL: Extremities without clubbing, cyanosis, or edema. NEURO: Alert, oriented at baseline Pt update on day of discharge Please see daily progress note Hospital Course Patient seen and evaluated in follow-up for discharge plans today. Patient was admitted with UTI and sepsis. Sepsis resolved. Patient had some significant cognitive impairment likely related to underlying dementia. He required some sedation but this seemed to improve as his infection improved. It was also thought to be a side effect of Cipro which she was prescribed for his UTI. Urine cultures did grow out Escherichia coli which is sensitive to Bactrim and he was started on this and seemed to continue to improve. His sepsis resolved. Patient was discharged home Pt Condition on Discharge: Good Discharge Disposition: Disch w/ Home Health Serv Discharge Time: > 30 minutes Discharge Instructions DIET: Follow Instructions for: As Tolerated, No Restrictions Speech Therapy-Diet Recommends: Regular Activities you can perform: Regular-No Restrictions Follow up Referrals: Neurology - 4 Weeks PCP Follow-up - 1 Week New Medications: Sulfamethoxazole/Trimethoprim (Sulfamethoxazole-Tmp Ss Tablet) 400 Mg-80 Mg Tablet 1 TAB PO Q12HR for Infection, #10 TAB Continued Medications: Aspirin DR (Aspirin 81) 81 Mg Tabdr 81 MG PO DAILY, TAB 0 Refills Atorvastatin (Atorvastatin) 40 Mg Tab 40 MG PO HS for Cholesterol Management, #30 TAB 0 Refills Carbidopa-Levodopa (Sinemet) 10-100 Mg Tab 1 TAB PO Q8HR for Parkinson Disease Mgmt, #90 TAB 0 Refills Donepezil (Donepezil) 5 Mg Tab 5 MG PO DAILY for Dementia, #30 TAB 0 Refills Enalapril (Enalapril) 10 Mg Tab 10 MG PO DAILY, #30 TAB 0 Refills Mirtazapine (Mirtazapine) 15 Mg Tab 15 MG PO HS for Depression Control, #30 TAB 0 Refills Ropinirole (Ropinirole) 0.25 Mg Tab 0.25 MG PO DIRECTED, #30 TAB 0 Refills Tamsulosin (Flomax) 0.4 Mg Cap 0.4 MG PO HS for Manage Prostate Problems, #7 Lesley Orlando MD Jul 22, 2017 12:30
[2017-07-22] MEDS ORDERED: TAMS5CAP PO ×2 (13:47→14:15)
[2017-07-22] MEDS ORDERED: BACT800T5 PO (14:15)
== END 2017-07-22 14:31 | disposition home health service (06) | DRG 871 ==
LOC: PHED 16:56 → PHEDA 19:58 → PHICU 22:03 → PH3A 07-19 22:57
PROVIDERS: ADMIT Hospitalist; ATTEND Hospitalist
DX: A41.9 Sepsis, unspecified organism (principal); G93.41 Metabolic encephalopathy; G20 Parkinson's disease; I48.91 Unspecified atrial fibrillation; N39.0 Urinary tract infection, site not specified; E11.9 Type 2 diabetes mellitus without complications; F03.90 Unspecified dementia, unspecified severity, without behavioral disturbance, psychotic disturbance, mood disturbance, and anxiety; I10 Essential (primary) hypertension; B96.20 Unspecified Escherichia coli [E. coli] as the cause of diseases classified elsewhere; E86.0 Dehydration; I25.2 Old myocardial infarction; I25.10 Atherosclerotic heart disease of native coronary artery without angina pectoris; Z87.442 Personal history of urinary calculi; Z95.1 Presence of aortocoronary bypass graft; Z95.5 Presence of coronary angioplasty implant and graft; Z86.73 Personal history of transient ischemic attack (TIA), and cerebral infarction without residual deficits; E78.00 Pure hypercholesterolemia, unspecified; Z23 Encounter for immunization; N40.0 Benign prostatic hyperplasia without lower urinary tract symptoms
CPT/HCPCS: 70450; 71010; 74176; 80048; 80053; 81001; 82550; 82565; 82948; 83605; 83690; 83735; 84100; 84484; 85025; 85027; 85610; 85730; 86850; 86900; 86901; 87040; 87077; 87086; 87186; 87641; 90471; 90732; 93005; 96365; 96375; G0009; J1630; J1644; J2060; J2543; J3370; J7030; J7040; J7050; P9612

== ENCOUNTER 2017-11-22 10:43 | Emergency (ER) | payer MEDICARE, OTHER ==
[~2017-11-22] VITALS: Ht 182.9 cm; Wt 72.0 kg
[~2017-11-22 10:43] MED LIST changes: -ASPI-110 PO; +ASPI1TAB57 PO; +BACT800T5 PO; -HYDR-3533 PO; +SINE10100 PO
[2017-11-22 11:02] VITALS: BP 111/61; PULSE 55; RESP 18; TEMP 97.6; O2SAT 98
[2017-11-22] MEDS ORDERED: ZOLO50TA PO (11:21)
[2017-11-22] MEDS ORDERED: SODIUM CHLOR 0.9% 1000 ML INJ 1,000 ML IV SCH (11:36)
--- NOTE | 2017-11-22 11:41 | PD ---
HPI Chief Complaint: GI Complaint Time Seen by Provider: 11:35 Travel History International Travel<30 days: No Contact w/Intl Traveler<30days: No Traveled to known affect area: No History of Present Illness HPI 72-year-old male patient with history of kidney stones, CAD status post cardiac surgery and valve replacement, currently on aspirin, presents to the ER today because he has been having lower abdominal pains, made a bowel movement last night and felt like he could not pass his stool, started having blood clots in his stool. He denies any black stools, vomiting, fevers, or other symptoms. Modifying Factors: None Associated Signs & Symptoms: Abdominal pain, blood in the stool Risk Factors: None PFSH Past Medical History Hx Anticoagulant Therapy: Yes (ASA) Arthritis: Yes (r foot) Atrial Fibrillation: Yes Depression: Yes Heart Rhythm Problems: Yes (tachycardia when younger, 20's) Cardiac Catheterization: Yes (2004 post mi) Cardiovascular Problems: Yes High Cholesterol: Yes Chest Pain: No Congestive Heart Failure: No Cerebrovascular Accident: Yes (possible, weak L hand library assistant and leg) Coronary Artery Disease: Yes Diabetes: Yes (Type 2- diet controlled) Patient Takes Glucophage: No Diminished Hearing: No Endocrine: Yes Gastrointestinal Disorders: Yes (colonoscopy/endoscopy jun 28, 2017- diverticulitis/osis) Genitourinary: Yes (prostatitis) Hypertension: Yes Immune Disorder: No Inguinal Hernia: Yes (surgical repair) Kidney Stones: Yes (removed april 2017 and 2 other times) Musculoskeletal: Yes Neurologic: Yes (sees Dr Ojeda for Parkinsons) Parkinson's Disease: Yes Psychiatric: Yes (sees Dr Douglas) Reproductive: No Respiratory: No Immunizations Current: No Migraines: No Seizures: No Sickle Cell Disease: No Influenza Vaccination: Yes ?: Not Past Surgical History Abdominal Surgery: Yes (congenital hernia, appe age 19) Appendectomy: Yes (with choley) Body Medical Devices: cardiac stents 2007 Cardiac Surgery: Yes (CABG 2007) Cholecystectomy: Yes () Coronary Artery Bypass Graft: Yes (09/2008) Coronary Stent: Yes (2004) Ear Surgery: No Endocrine Surgery: No Eye Surgery: No Genitourinary Surgery: Yes (KIDNEY STONE REMOVAL April 26 2017) Gynecologic Surgery: No Oral Surgery: No Thoracic Surgery: No Other Surgery: Yes Social History Alcohol Use: No Tobacco Use: No Substance Use: No Allergies-Medications (Allergen,Severity, Reaction): Coded Allergies: propofol (Verified Allergy, Severe, Hallucinations, 11/22/17) Reported Meds & Prescriptions Reported Meds & Active Scripts Active Flomax (Tamsulosin HCl) 0.4 Mg Cap 0.4 Mg PO HS Reported Zoloft (Sertraline HCl) 50 Mg Tab 50 Mg PO HS Sinemet (Carbidopa/Levodopa) 10-100 Mg Tab 1 Tab PO Q8HR Donepezil 5 Mg Tab 5 Mg PO DAILY Ropinirole 0.25 Mg Tab 0.25 Mg PO DIRECTED Atorvastatin (Atorvastatin Calcium) 40 Mg Tab 40 Mg PO HS Aspirin 81 (Aspirin) 81 Mg Tabdr 81 Mg PO DAILY Enalapril (Enalapril Maleate) 10 Mg Tab 10 Mg PO DAILY Review of Systems Except as stated in HPI: all other systems reviewed are Neg Physical Exam Narrative GENERAL: Well-developed elderly white male patient currently in mild distress. Awake and oriented 3. SKIN: Focused skin assessment warm/dry. HEAD: Atraumatic. Normocephalic. EYES: Pupils equal and round. No scleral icterus. No injection or drainage. ENT: No nasal bleeding or discharge. Mucous membranes pink and moist. NECK: Trachea midline. No JVD. CARDIOVASCULAR: Regular rate and rhythm. No murmur appreciated. RESPIRATORY: No accessory muscle use. Clear to auscultation. Breath sounds equal bilaterally. GASTROINTESTINAL: Abdomen soft, right pelvic tenderness without guarding rebound , nondistended. Hepatic and splenic margins not palpable. RECTAL EXAM: No masses or tenderness, stool is maroon colored, Hemoccult positive. MUSCULOSKELETAL: No obvious deformities. No clubbing. No cyanosis. No edema. NEUROLOGICAL: Awake and alert. No obvious cranial nerve deficits. Motor grossly within normal limits. Normal speech. PSYCHIATRIC: Appropriate mood and affect; insight and judgment normal. Data Data Last Documented VS Vital Signs Date Time Temp Pulse Resp B/P (MAP) Pulse Ox O2 Delivery O2 Flow Rate FiO2 11/22/17 12:46 60 18 132/71 (91) 97 Room Air 11/22/17 11:02 97.6 Orders Orders Complete Blood Count With Diff (11/22/17 11:36) Comprehensive Metabolic Panel (11/22/17 11:36) Lipase (11/22/17 11:36) Prothrombin Time / Inr (Pt) (11/22/17 11:36) Act Partial Throm Time (Ptt) (11/22/17 11:36) Ct Abd/Pel W Iv Contrast(Rout) (11/22/17 11:36) Iv Access Insert/Monitor (11/22/17 11:36) Ecg Monitoring (11/22/17 11:36) Oximetry (11/22/17 11:36) Pantoprazole Inj (Protonix Inj) (11/22/17 11:45) Sodium Chlor 0.9% 1000 Ml Inj (Ns 1000 M (11/22/17 11:36) Sodium Chloride 0.9% Flush (Ns Flush) (11/22/17 11:45) Type And Screen (11/22/17 11:36) Urinalysis - C+S If Indicated (11/22/17 12:25) Iohexol 350 Inj (Omnipaque 350 Inj) (11/22/17 12:29) Labs Laboratory Tests Test 11/22/17 11:45 11/22/17 12:15 White Blood Count 9.7 TH/MM3 Red Blood Count 4.51 MIL/MM3 Hemoglobin 12.5 GM/DL Hematocrit 38.4 % Mean Corpuscular Volume 85.2 FL Mean Corpuscular Hemoglobin 27.7 PG Mean Corpuscular Hemoglobin Concent 32.5 % Red Cell Distribution Width 13.1 % Platelet Count 249 TH/MM3 Mean Platelet Volume 6.6 FL Neutrophils (%) (Auto) 85.0 % Lymphocytes (%) (Auto) 5.4 % Monocytes (%) (Auto) 9.0 % Eosinophils (%) (Auto) 0.3 % Basophils (%) (Auto) 0.3 % Neutrophils # (Auto) 8.3 TH/MM3 Lymphocytes # (Auto) 0.5 TH/MM3 Monocytes # (Auto) 0.9 TH/MM3 Eosinophils # (Auto) 0.0 TH/MM3 Basophils # (Auto) 0.0 TH/MM3 CBC Comment DIFF FINAL Differential Comment Prothrombin Time 10.7 SEC Prothromb Time International Ratio 1.1 RATIO Activated Partial Thromboplast Time 26.8 SEC Blood Urea Nitrogen 17 MG/DL Creatinine 0.78 MG/DL Random Glucose 114 MG/DL Total Protein 6.9 GM/DL Albumin 3.5 GM/DL Calcium Level 9.2 MG/DL Alkaline Phosphatase 80 U/L Aspartate Amino Transf (AST/SGOT) 18 U/L Alanine Aminotransferase (ALT/SGPT) 7 U/L Total Bilirubin 0.9 MG/DL Sodium Level 138 MEQ/L Potassium Level 4.2 MEQ/L Chloride Level 106 MEQ/L Carbon Dioxide Level 26.9 MEQ/L Anion Gap 5 MEQ/L Estimat Glomerular Filtration Rate 97 ML/MIN Lipase 121 U/L Urine Collection Type CLEAN CATCH Urine Color YELLOW Urine Turbidity CLEAR Urine pH 6.0 Urine Specific Joseph 1.010 Urine Protein NEG mg/dL Urine Glucose (UA) NEG mg/dL Urine Ketones NEG mg/dL Urine Occult Blood NEG Urine Nitrite NEG Urine Bilirubin NEG Urine Leukocyte Esterase NEG Urine WBC 0-2 /hpf Microscopic Urinalysis Comment CULT NOT INDICATED MDM Medical Decision Making Medical Screen Exam Complete: Yes Emergency Medical Condition: Yes Medical Record Reviewed: Yes Interpretation(s) Laboratory Tests Test 11/22/17 11:45 Hemoglobin 12.5 GM/DL (13.0-17.0) Hematocrit 38.4 % (39.0-51.0) Mean Platelet Volume 6.6 FL (7.0-11.0) Neutrophils (%) (Auto) 85.0 % (16.0-70.0) Lymphocytes (%) (Auto) 5.4 % (9.0-44.0) Monocytes (%) (Auto) 9.0 % (0.0-8.0) Neutrophils # (Auto) 8.3 TH/MM3 (1.8-7.7) Lymphocytes # (Auto) 0.5 TH/MM3 (1.0-4.8) Random Glucose 114 MG/DL (74-106) Alanine Aminotransferase (ALT/SGPT) 7 U/L (12-78) Last 24 hours Impressions Abdomen/Pelvis CT 11/22/17 1136 Signed Impressions: Service Date/Time: Wednesday, November 22, 2017 12:23 - CONCLUSION: 1. Distal colitis in the lower abdomen without obstruction. Trace free fluid. 2. Previous cholecystectomy. Stable cystic changes lower right kidney with nonobstructing calculus. Vick Cardoza MD Differential Diagnosis GI bleed versus gastroenteritis versus diverticulitis versus renal colic versus obstruction versus other acute intra-abdominal processes Narrative Course Lab work shows that his hemoglobin is stable. Patient had been given IV Protonix in the ER. He did have a positive Hemoccult. Vital signs are stable in the ER. CAT scan shows a distal colitis which I suspect is causing the bleeding. At this point, I have discussed the findings with the patient and have offered to admit the patient as an observation versus close outpatient follow-up and discharge. He states he wants to go home. He should return for any worsening of bleeding, pain, and as needed. The plan has been discussed with him he states understanding. [facility] Point of Care Internal Pos. & Neg. Controls: Passed Fecal Specimen Occult Blood: Positive Diagnosis Primary Impression: GI bleed Additional Impressions: Abdominal pain Colitis Med/Other Pt SpecificInfo: Prescription(s) given Scripts Metronidazole (Flagyl) 500 Mg Tab 500 MG PO BID for Infection for 7 Days, #14 TAB 0 Refills Prov: Calin Aguero MD 11/22/17 Ciprofloxacin (Cipro) 500 Mg Tab 500 MG PO BID for Infection for 7 Days, #14 TAB 0 Refills Prov: Calin Aguero MD 11/22/17 Disposition: 01 DISCHARGE HOME Condition: Stable Calin Aguero MD Nov 22, 2017 11:41
[2017-11-22] MEDS ORDERED: SODIUM CHLORIDE 0.9% FLUSH 10 ML FLUSH IV FLUSH PRN (11:45)
[2017-11-22] MEDS ORDERED: PANTOPRAZOLE SODIUM 40 MG VIAL IVP ONE (11:45)
[2017-11-22 11:47] VITALS: BP 117/69; PULSE 60; RESP 18; O2SAT 96
[2017-11-22 11:51] LABS: AUTOMATED NEUTROPHIL # 8.3 TH/MM3 (1.8-7.7); BASOPHIL % 0.3 % (0.0-2.0); EOSINOPHIL % 0.3 % (0.0-4.0); HEMATOCRIT 38.4 % (39.0-51.0); HEMOGLOBIN 12.5 GM/DL (13.0-17.0); LYMPH % 5.4 % (9.0-44.0); LYMPHOCYTE # 0.5 TH/MM3 (1.0-4.8); MEAN CELL VOLUME 85.2 FL (80.0-100.0); MEAN CORPUSCULAR HEMOGLOBIN 27.7 PG (27.0-34.0); MEAN CORPUSCULAR HGB CONC 32.5 % (32.0-36.0); MEAN PLATELET VOLUME 6.6 FL (7.0-11.0); MONOCYTE # 0.9 TH/MM3 (0-0.9); PLATELET COUNT 249 TH/MM3 (150-450); RED BLOOD COUNT 4.51 MIL/MM3 (4.50-5.90); RED CELL DISTRIBUTION WIDTH 13.1 % (11.6-17.2); WHITE BLOOD COUNT 9.7 TH/MM3 (4.0-11.0)
[2017-11-22 12:03] LABS: CHLORIDE 106 MEQ/L (98-107); SODIUM (NA) 138 MEQ/L (136-145)
[2017-11-22 12:04] LABS: INTERNATIONAL NORMALIZED RATIO 1.1 RATIO; PROTHROMBIN TIME - PATIENT 10.7 SEC (9.8-11.6)
[2017-11-22 12:06] LABS: ALBUMIN 3.5 GM/DL (3.4-5.0); BICARBONATE 26.9 MEQ/L (21.0-32.0); CALCIUM 9.2 MG/DL (8.5-10.1); GLUCOSE,RANDOM 114 MG/DL (74-106)
[2017-11-22 12:07] LABS: BLOOD UREA NITROGEN 17 MG/DL (7-18)
[2017-11-22 12:09] LABS: ALT (GPT) 7 U/L (12-78); AST (GOT) 18 U/L (15-37); CREATININE 0.78 MG/DL (0.60-1.30); GLOMERULAR FILTRATION RATE 97 ML/MIN (>89)
[2017-11-22 12:11] LABS: TOTAL BILIRUBIN ADULT 0.9 MG/DL (0.2-1.0); TOTAL PROTEIN 6.9 GM/DL (6.4-8.2)
[2017-11-22 12:12] LABS: ALKALINE PHOSPHATASE 80 U/L (45-117)
[2017-11-22] MEDS ORDERED: IOHEXOL 350 MG/ML 10 ML VIAL (for RAD DIAG) IVCONTRAST ONE (12:29)
[2017-11-22 12:35] LABS: BILIRUBIN, URINE NEG (NEG); BLOOD, URINE NEG (NEG); GLUCOSE,URINE NEG (NEG); KETONE, URINE NEG (NEG); NITRITE,URINE NEG (NEG); URINE LEUKOCYTE ESTERASE NEG (NEG)
[2017-11-22 12:41] LABS: URINE COLOR YELLOW (YELLW/STRAW); WBC, URINE 0-2 /hpf (0-5)
[2017-11-22 12:46] VITALS: BP 132/71; PULSE 60; RESP 18; O2SAT 97
--- NOTE | 2017-11-22 12:52 | RADRPT ---
EXAM DATE/TIME: 11/22/2017 12:23 [facility] COMPARISON: CT ABDOMEN & PELVIS W/O CONTRAST, July 18, 2017, 18:00. INDICATIONS : Lower abdominal pain with blood in stool. IV CONTRAST: 95 cc Omnipaque 350 (iohexol) IV ORAL CONTRAST: No oral contrast ingested. RADIATION DOSE: 6.33 CTDIvol (mGy) MEDICAL HISTORY : Cardiovascular disease. Parkinsons. Cerebrovascular disease.Diverticulitis. Prostateitis. Renal stone s. Diabetes. SURGICAL HISTORY : CABG Inguinal hernia repair.Cholecystectomy.Appendectomy. ENCOUNTER: Initial ACUITY: 2 days PAIN SCALE: 6/10 LOCATION: pelvis TECHNIQUE: Volumetric scanning of the abdomen and pelvis was performed. Using automated exposure control and ad justment of the mA and/or kV according to patient size, radiation dose was kept as low as reasonably achievable to obtain optimal diagnostic quality images. DICOM format image data is available electro nically for review and comparison. FINDINGS: There is mild dependent atelectasis in the lungs. No acute findings in the liver, spleen, adrenals or pancreas. Previous cholecystectomy. Parapelvic cy sts present lower pole right kidney with a nonobstructing 3 mm calculus. Small bilateral renal parenc hymal cysts as well. No hydronephrosis. The Within the lower abdomen there is an approximately 20 cm segment of distal colon demonstrating mural thickening and edema and some pericolonic fat stranding most characteristic of a distal colitis. CONCLUSION: 1. Distal colitis in the lower abdomen without obstruction. Trace free fluid. 2. Previous cholecystectomy. Stable cystic changes lower right kidney with nonobstructing calculus. Vick Cardoza MD on November 22, 2017 at 12:43 Board Certified Radiologist. This report was verified electronically.
[2017-11-22] MEDS ORDERED: CIPR-9 PO (13:22)
[2017-11-22] MEDS ORDERED: METR-1 PO (13:22)
== END 2017-11-22 13:37 | disposition home or self-care (01) ==
LOC: PHED 10:43
DX: K92.2 Gastrointestinal hemorrhage, unspecified (principal); R10.30 Lower abdominal pain, unspecified; K52.9 Noninfective gastroenteritis and colitis, unspecified; E11.9 Type 2 diabetes mellitus without complications; I10 Essential (primary) hypertension; I48.91 Unspecified atrial fibrillation; I25.10 Atherosclerotic heart disease of native coronary artery without angina pectoris; E78.00 Pure hypercholesterolemia, unspecified; G20 Parkinson's disease; F32.9 Major depressive disorder, single episode, unspecified; Z79.82 Long term (current) use of aspirin; Z87.39 Personal history of other diseases of the musculoskeletal system and connective tissue; Z86.79 Personal history of other diseases of the circulatory system; Z86.73 Personal history of transient ischemic attack (TIA), and cerebral infarction without residual deficits; Z87.19 Personal history of other diseases of the digestive system; Z87.448 Personal history of other diseases of urinary system
CPT/HCPCS: 74177; 80053; 81001; 83690; 85025; 85610; 85730; 86850; 86900; 86901; 96361; 96374; 99284; C9113; J7030; Q9967